=== PATIENT | male | born 1935 | race Caucasian/White ===

== ENCOUNTER 2016-04-27 09:17 | Emergency (ER) | payer MEDICARE, OTHER ==
--- NOTE | 2016-04-27 09:21 | ED Physician Chart ---
Chief Complaint/HPI - Patient Information Date Seen:: 04/27/16 Time Seen:: 09:21 Chief Complaint:: cough History of Present Illness:: 80-year-old male history of COPD and hypertension complains of acute, moderate, nonproductive, constant, worse at night in the morning, cough 1 month. Took NyQuil and [id number] cough syrup but cough has persisted. Allergies:: Allergies Allergy/AdvReac Type Severity Reaction Status Date / Time MDX No Known Allergies - Nka Allergy Verified 04/18/14 11:28 [No Known Allergies - Nka] Historian:: Patient Review:: Nurse's Note Reviewed Review of Systems - Review of Systems Other: Complete system review otherwise unremarkable except as noted in history of present illness. Past Medical History - Past Medical History Past Medical History: HTN, Asthma/COPD Family History: None Social History: Non Smoker (remote history of smoking), No Alcohol, No Drug Use Surgical History: None Psychiatricy History: None Medication: Reviewed Family Medical History - Family Member Mother Ethnicity: Non- Living Status: Hx Family Cancer: Yes Hx Family Coronary Artery Disease: No Hx Family Congestive Heart Failure: No Hx Family Hypertension: No Hx Family Stroke: No Hx Family Diabetes: No Hx Family Seizures: No Hx Family Dementia: No Hx Family AIDS: No Hx Family HIV: No Hx Family COPD: No Hx Family Hepatitis: No Hx Family Psychiatric Problems: No Hx Family Tuberculosis: No Physical Exam - Physical Examination Other:: INITIAL VITAL SIGNS: Reviewed by me GENERAL: Alert and interactive. No acute distress HEAD: Head is normocephalic and atraumatic EYES: EOMI. PERRL. No scleral icterus. No conjunctival injection ENT: Moist mucous membranes. NECK: Supple. No masses. Full range of motion RESPIRATORY: No tachypnea. Cough on deep inspiration with prolonged expiratory phase bilaterally. No wheezing, rales, or rhonchi CV: Regular rate and rhythm. No murmurs, rubs, or gallops ABDOMEN: Soft, non-distended, non-tender. No guarding. No rebound. No masses. EXTREMITIES: No deformity. No cyanosis. No edema. SKIN: Warm and dry. No obvious rashes. NEUROLOGIC: Alert and oriented. Face is symmetric. Speech is normal. Moves all extremities equally. Motor and sensory distally intact. ED Septic Shock - . Is Septic Shock (SBP<90, OR Lactate>4 mmol\L) present?: No Reassessment (Disposition) - Reassessment Reassessment:: 80-year-old gentleman with underlying COPD and cough. Has acute bronchitis versus COPD exacerbation. Slightly Hypoxic on arrival however has home oxygen. After breathing treatment oxygen improved to 91% on room air. Chest x-ray is abnormal however patient does not want CT scan. Discussed all findings with the patient. He will refer to his outpatient physician for referral to CT. Given age we will prescribe antibiotics. Gave Decadron here in the ER. Prescription for Phenergan With Codeine antitussive and azithromycin. Follow- up PCP 1-2 days. Return to ER precautions given. Reassessment Condition:: Improved - Diagnosis Diagnosis:: COPD exacerbation Hypertension - Aftercare/Follow up Instructions Aftercare/Follow-Up Instructions:: Counseled pt regarding lab results/diagnosis & need follow up, Refer to Discharge Instructions Medication Prescribed:: Azithromycin Prednisone Phenergan with codeine antitussive - Patient Disposition Discharge/Transfer:: Home Condition at Disposition:: Improved ED Discharge Plan - Patient Disposition Admit/Discharge/Transfer: PT DISCHARGED HOME Condition at Disposition: Improved Prescriptions: Azithromycin [Zithromax Tri-Calvin] 250 mg PO DAILY #0 tablet Prednisone [Deltasone] 20 mg PO DAILY #0 tablet Promethazine/Phenyleph/Codeine [Promethazine Vc-Codeine Syrup] 5 ml PO Q8H PRN # 0 syrup PRN Reason: Cough Instructions: Chronic Obstructive Pulmonary Disease Exacerbation Accepting Physician: [place] [Other] - 1-3 Days
[2016-04-27] MEDS ORDERED: Dexamethasone Sodium Phos 4 mg/mL Vial IM STA (09:48)
[2016-04-27] MEDS ORDERED: Albuterol/Ipratropium Neb 3 ML AERS HHN ONE ×2 (09:48→09:53)
[2016-04-27] MEDS ORDERED: Dexamethasone Sodium Phos 10 mg/mL PF Vial ONE (09:50)
--- NOTE | 2016-04-27 11:15 | Diagnostic Imaging Report ---
Portable chest x-ray HISTORY: Cough The lungs are hyperexpanded consistent with changes of COPD. There are bilateral lower lobe interstitial changes that are most likely chronic. Calcific density noted over the right mid chest and left upper chest regions. The findings are probably related to the pleura and associated with old inflammatory disease. A CT scan would confirm. The heart size is normal. Atherosclerotic calcification seen in the aorta. IMPRESSION: 1. Findings consistent with COPD 2. Bilateral lower lobe interstitial changes probably chronic 3. Calcifications over the right mid chest and left upper chest probably related to the pleura and associated with old inflammatory disease. A CT scan would confirm. 4. Atherosclerotic vascular changes
== END 2016-04-27 10:22 | disposition home or self-care (01) ==
LOC: ER 09:17
DX: J44.1 Chronic obstructive pulmonary disease with (acute) exacerbation (principal); J45.909 Unspecified asthma, uncomplicated; I10 Essential (primary) hypertension
CPT/HCPCS: 71010-TC; 94640; Z7502

== ENCOUNTER 2016-04-29 08:27 | Inpatient (IN) | payer MEDICARE, OTHER ==
[2016-04-29] MEDS ORDERED: Albuterol/Ipratropium Neb 3 ML AERS HHN ONE ×4 (08:39→08:58)
--- NOTE | 2016-04-29 08:48 | ED Physician Chart ---
Chief Complaint/HPI - Patient Information Date Seen:: 04/29/16 Time Seen:: 08:45 Chief Complaint:: sob History of Present Illness:: pt here for feeling sob all am...worse now. has hx of copd. x 7 yrs. stopped smoking 7 yrs ago. 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 was here few days ago w similar complaint. has a rx for steroids says he took it today. has inhalers at home. no chest pain. no leg edema. he has had a cough x 1 mo mostly non prod or occasional small ammt clear sputum. no known fever. much congestion in lungs. Allergies:: Allergies Allergy/AdvReac Type Severity Reaction Status Date / Time No Known Allergies Allergy Verified 04/27/16 09:50 Vitals:: Vital Signs - 8 hr 04/29/16 08:43 HR 91 RR 24 O2 Sat % 78 Historian:: Patient Review of Systems - Review of Systems General/Constitutional: No fever, No chills, No weight loss, No weakness, No diaphoresis, No edema, No loss of appetite Skin: No skin lesions, No rash, No bruising Head: No headache, No light-headedness Eyes: No loss of vision, No pain, No diplopia ENT: No earache, No nasal drainage, No sore throat, No tinnitus Neck: No neck pain, No swelling, No thyromegaly, No stiffness, No mass noted Cardio Vascular: No chest pain, No palpitations, No PND, No orthopnea, No edema Pulmonary: SOB, No cough, No sputum, No wheezing GI: No nausea, No vomiting, No diarrhea, No pain, No melena, No hematochezia, No constipation, No hematemesis G/U: No dysuria, No frequency, No hematuria Musculoskeletal: No bone or joint pain, No back pain, No muscle pain Endocrine: No polyuria, No polydipsia Psychiatric: No prior psych history, No depression, No anxiety, No suicidal ideation Hematopoietic: No bruising, No lymphadenopathy Allergic/Immuno: No urticaria, No angioedema Neurological: No syncope, No focal symptoms, No weakness, No paresthesia, No headache, No seizure, No dizziness, No confusion, No vertigo Past Medical History - Past Medical History Past Medical History: HTN, Asthma/COPD Social History: Non Smoker (past tob) Medication: Reviewed Family Medical History - Family Member Mother History Unknown: Yes Ethnicity: Non- Living Status: Hx Family Cancer: Yes Hx Family Coronary Artery Disease: No Hx Family Congestive Heart Failure: No Hx Family Hypertension: No Hx Family Stroke: No Hx Family Diabetes: No Hx Family Seizures: No Hx Family Dementia: No Hx Family AIDS: No Hx Family HIV: No Hx Family COPD: No Hx Family Hepatitis: No Hx Family Psychiatric Problems: No Hx Family Tuberculosis: No Physical Exam - Physical Examination General/Constitutional: Awake, Well-developed, well-nourished, Alert, No distress, GCS 15, Non-toxic appearing, Ambulatory Other Gen/Cons comments:: very thin male who is alert and speaks in full sentences. apears to have chronic emphysema. somewhat mild sob at present w mild wheezing heard ...overall air mvt is good. no leg tndrness nor edema. no c/o cp. Head: Atraumatic Eyes: Lids, conjuctiva normal, PERRL, EOMI Skin: Nl inspection, No rash, No skin lesions, No ecchymosis, Well hydrated, No lymphadenopathy ENMT: External ears, nose nl, Nasal exam nl, Lips, teeth, gums nl Neck: Nontender, Full ROM w/o pain, No JVD, No nuchal rigidity, No bruit, No mass, No stridor Respiratory: Nl effort/Exclusion, Clear to Auscultation, No Wheeze/Rhonchi/Rales Other Respiratory comments:: bronchial cough/ronchi pos. some wheeze. Cardio Vascular: RRR, No murmur, gallop, rubs, NL S1 S2 GI: No tenderness/rebounding/guarding, No organomegaly, No hernia, Normal BS's, Nondistended, No mass/bruits, No McBurney tenderness : No CVA tenderness Extremities: No tenderness or effusion, Full ROM, normal strength in all extremities, No edema, Normal digits & nails Neuro/Psych: Alert/oriented, DTR's symmetric, Normal sensory exam, Normal motor strength, Judgement/insight normal, Mood normal, Normal gait, No focal deficits Misc: normal gait, Normal back, No paraspinal tenderness Labs/Radiology/EKG Results - Lab Results Results: Laboratory Tests 04/29/16 04/29/16 04/29/16 08:40 08:40 08:40 WBC 11.2 H D RBC 4.24 Hgb 13.9 Hct 41.1 MCV 97.1 MCH 32.8 H MCHC Differential 33.7 RDW 13.5 Plt Count 211 MPV 8.4 Band Neutrophils % 3 Neutrophils (Manual) 73 Lymphocytes 7 L Monocytes 17 H Platelet Estimate ADEQUATE Platelet Morphology NORMAL RBC Morph Micro Appear NORMAL Specimen Source Sample Site pH pCO2 pO2 HCO3 Base Excess O2 Saturation Inspired O2 Critical Value Sodium 133 L Potassium 3.8 Chloride 100 Carbon Dioxide 32.3 H Anion Gap 4.5 L BUN 20 Creatinine 0.9 Est GFR ( Amer) TNP Est GFR (Non-Af Amer) TNP BUN/Creatinine Ratio 22.2 Glucose 120 H Whole Bld Lactic Acid 1.82 Calcium 9.9 Total Bilirubin 0.6 AST 28 ALT 14 Alkaline Phosphatase 57 Troponin I Total Protein 8.1 Albumin 4.4 Globulin 3.7 Albumin/Globulin Ratio 1.2 04/29/16 04/29/16 08:40 08:48 WBC RBC Hgb Hct MCV MCH MCHC Differential RDW Plt Count MPV Band Neutrophils % Neutrophils (Manual) Lymphocytes Monocytes Platelet Estimate Platelet Morphology RBC Morph Micro Appear Specimen Source Arterial Sample Site RB pH 7.35 pCO2 60.0 H* pO2 56.0 L HCO3 33.1 H Base Excess 5.8 H O2 Saturation 87.0 L Inspired O2 28 Critical Value PW Sodium Potassium Chloride Carbon Dioxide Anion Gap BUN Creatinine Est GFR ( Amer) Est GFR (Non-Af Amer) BUN/Creatinine Ratio Glucose Whole Bld Lactic Acid Calcium Total Bilirubin AST ALT Alkaline Phosphatase Troponin I 0.08 H* Total Protein Albumin Globulin Albumin/Globulin Ratio - Radiology Results Results: cxr nad. subtle round density 3cm in rt mid lung could be a subtle inf or fungal ?? - EKG Interpretations EKG Time:: 08:45 Rhythm: nsr [place]: 51 Rate: 81 Comments:: nsr , wnl, 1 x pvc ED Septic Shock - . Is Septic Shock (SBP<90, OR Lactate>4 mmol\L) present?: No - <6hrs of presentation: Vital Signs: Vital Signs - 8 hr 04/29/16 08:43 HR 91 RR 24 O2 Sat % 78 Reassessment (Disposition) - Reassessment Reassessment:: pt is breathing easier. sao2 has improved to low 90s. pt not gasping and sepaks easily. he is ok w admission. explained about elev troponin. d/w telecommunication operator Dr Perry will see in ed (10;04a) Reassessment Condition:: Improved - Diagnosis Diagnosis:: 1 emphysema/copd exacerbation 2 pneumonia 3 elevated troponin r/o CA - Patient Disposition Admitted to:: Telemetry Condition at Disposition:: Improved
[2016-04-29 09:07] LABS: BE(B) 5.8 mEq/L (-3.0-3.0); HCO3 33.1 mEq/L (20.0-26.0); pH 7.35 (7.35-7.45)
[2016-04-29 09:08] LABS: ABG SOURCE Arterial; CRITICAL VALUES REPORTED BY PW; FIO2 28
[2016-04-29 09:13] LABS: HEMATOCRIT 41.1 % (39.0-49.0); HEMOGLOBIN 13.9 gm/dL (12.6-17.4); MEAN CELL VOLUME 97.1 fl (80-99); MEAN CORPUSCULAR HEMOGLOBIN 32.8 pg (27.0-31.0); MEAN CORPUSCULAR HGB CONC 33.7 pg (28.0-36.0); MEAN PLATELET VOLUME 8.4 fl; PLATELET COUNT 211 Th/cmm (150-400); RED BLOOD COUNT 4.24 Mil/cmm (3.80-5.80); RED CELL DISTRIBUTION WIDTH 13.5 % (11.5-20.0)
[2016-04-29 09:14] LABS: ALB/GLOB RATIO 1.2 (1.0-1.8); ALKALINE PHOSPHATASE 57 U/L (34-104); ANION GAP 4.5 (7.0-16.0); BILIRUBIN,TOTAL 0.6 mg/dL (0.3-1.0); BUN - UREA NITROGEN 20 mg/dL (7-25); BUN/CREATININE RATIO 22.2; CALCIUM SERUM 9.9 mg/dL (8.6-10.3); CARBON DIOXIDE 32.3 mEq/L (21.0-31.0); CHLORIDE 100 mEq/L (98-107); CREATININE - SERUM 0.9 mg/dL (0.7-1.3); GLUCOSE 120 mg/dL (70-105); POTASSIUM SERUM 3.8 mEq/L (3.5-5.1); SGOT 28 U/L (13-39); SGPT/ALT 14 U/L (7-52); SODIUM SERUM 133 mEq/L (136-145); WHITE BLOOD COUNT 11.2 Th/cmm (4.8-10.8)
--- NOTE | 2016-04-29 09:25 | Diagnostic Imaging Report ---
CHEST X-RAY: AP view INDICATION: Shortness of breath, cough for one month COMPARISON: Chest x-ray 04/27/2016 FINDINGS: Extensive chronic lung changes are seen with areas of scarring including the left upper lung zone. Diffuse pleural calcifications are seen. Right perihilar parenchymal disease is noted. Bibasal pleural thickening is noted. Heart size is normal. Atherosclerosis is noted. Degenerative changes of the spine are noted. IMPRESSION: Extensive chronic lung changes and COPD. Bilateral pleural calcifications are seen which may be due to prior infectious or inflammatory process or asbestos exposure. Right perihilar parenchymal disease which may represent chronic parenchymal changes or possible pneumonia. Underlying nodular other mass lesion cannot be completely excluded. Correlation with old exams is recommended. A short-term follow-up CT of the chest would provide additional detail and assessment. Atherosclerotic vascular disease.
[2016-04-29 09:32] LABS: BAND NEUTROPHILE 3 % (0-10); NEUTROPHILS 73 % (40-80); PLATELET ESTIMATE ADEQUATE (NORMAL); PLATELET MORPHOLOGY NORMAL (NORMAL); TOTAL CELLS COUNTED 100
[2016-04-29] MEDS ORDERED: Levofloxacin 500mg/100mL 500 MG/100 ML BAG IV ONE ×2 (10:05→10:08)
[2016-04-29] MEDS ORDERED: Magnesium Hydroxide (MOM) 30 mL UDC PO PRN (10:51)
[2016-04-29] MEDS ORDERED: Hydrocodone/APAP 10 mg/325 mg Tab PO PRN (10:51)
[2016-04-29] MEDS ORDERED: Hydrocodone/APAP 5mg/325mg Tab PO PRN (10:51)
[2016-04-29] MEDS ORDERED: Maalox 30 mL Cup PO PRN (10:51)
--- NOTE | 2016-04-29 11:27 | Admit Criteria Form ---
Admit Criteria Forms - Admit Criteria Diagnosis: COPD Clinical Indications for Admission to Inpatient Care (Place 'X' for any and all applicable criteria): Admission is indicated for ANY ONE of the following (1)(2)(3): [X]I. Acute exacerbation by high-risk comorbidity (e.g., pneumonia, dysrhythmia, heart failure, pleural effusion, pneumothorax) or severe underlying COPD (e.g., steroid dependent) [ ]II. Inpatient admission required rather than observation care (see Chronic Obstructive Pulmonary Disease: Observation Care) because of ANY ONE of the following: [ ]a) New or pre-existing signs or symptoms of COPD (eg, dyspnea or Tachypnea at rest or with minimal activity) that persist despite outpatient and observation care treatment [ ]b) New-onset hypoxemia (room air SaO2 less than 90%, PO2 less than 60 mm Hg (8.0 kPa)) that persists despite outpatient and observation care treatment [ ]c) Worsening of pre-existing hypoxemia (eg, new or increased requirement for supplemental oxygen to maintain oxygenation at baseline level) that persists despite outpatient and observation care treatment, with oxygen treatment needs performable only in acute inpatient setting [ ]d) Hypercarbia (PCO2 greater than 40 mm Hg (5.3 kPa))-induced respiratory acidosis (pH less than 7.35) that persists despite outpatient and observation care treatment [ ]e) Supplemental oxygen or respiratory treatments for over 24 hours that are performable only in acute inpatient setting [ ]f) Chest tube placement with active evacuation (e.g., suction, drainage) (5) [ ]g) Other condition, treatment or monitoring requiring inpatient admission [ ]III. Planned invasive surgical or diagnostic procedures requiring acute- care hospitalization [ ]IV. Acute respiratory failure (e.g., uncompensated hypercarbia, severe hypoxemia) [ ]V. Severe comorbid condition (e.g., severe steroid myopathy, acute vertebral fracture) that has acutely worsened pulmonary function [ ]. Confusion state, lethargy, obtundation, stupor or coma Extended stay beyond goal length of stay may be needed for (31)(32): [ ]a ) Respiratory Failure. [ ]b) Severe or persisting hypoxemia or hypercarbia [ ]c) Severe or persistent dyspnea [ ]d) Comorbidities (e.g. chronic heart failure, atrial fibrillation with rapid response, pneumonia) [ ]e) Malnutrition The original [facility] content created by [email or web address] has been revised. The portions of the content which have been revised are identified through the use of italic text or in bold, and [facility] has neither reviewed nor approved the modified material. All other unmodified content is copyright [facility]. Please see references footnoted in the original [facility] edition 2016 Admit Criteria Met?: Yes
[2016-04-29] MEDS: D5-0.9%NS 1,000 ML IV SCH (11:31)
[2016-04-29] MEDS ORDERED: Pneumococcal Vaccine 0.5 mL Vial IM ONE (12:10)
--- NOTE | 2016-04-29 14:13 | History & Physical ---
CHIEF COMPLAINT: Shortness of breath. HISTORY OF PRESENT ILLNESS: The patient is a 80-year-old white male who presented to the ER complaining of shortness of breath. The patient says working in rell environment this morning. The patient is here a few days ago with some complaints. The patient has history of COPD for 7 years. The patient denies any chest pain. The patient with some productive cough. No fever, no chills. ALLERGIES: No known allergies. REVIEW OF SYSTEMS: See history of present illness. MEDICATIONS: See medication reconciliation form. PAST MEDICAL HISTORY: Hypertension, COPD. PAST SURGICAL HISTORY: Negative. SOCIAL HISTORY: Denies IV drug use. Denies alcohol abuse. History of tobacco use in the past. PHYSICAL EXAMINATION: GENERAL: The patient is awake, alert, nontoxic in appearance. VITAL SIGNS ON ADMISSION: Temperature per labs, pulse of 90, blood pressure 124 /97, respiration rate 20, O2 sat per labs on room air. HEENT: Normocephalic, atraumatic. Extraocular movements intact. Pupils are reactive to light. Oropharynx is clear. NECK: Supple. No thyromegaly. No lymphadenopathy. CARDIOVASCULAR: S1 and S2. No rubs, gallops. RESPIRATORY: The patient has some wheezing. The patient has some rhonchi. GASTROINTESTINAL: Soft, nontender, bowel sounds present. GENITOURINARY: No CVA tenderness. No suprapubic tenderness. BACK: No midline tenderness. EXTREMITIES: Equal pulses bilaterally. No significant edema. SKIN: Negative. PSYCHIATRIC: Negative. NEUROLOGIC: Cranial nerves 2-12 intact. Extraocular movements are intact. Sensation intact. Neurovascular intact. Bilateral muscle grossly normal. LABORATORY DATA: Labs on admission as follows, hematology, WBC 11.2, hemoglobin 13.9 and 40.1, platelet count of 211, 7% lymphocytes, 17% monocytes. ABG, pH of 7.3, pCO2 60, pO2 of 56, bicarbonate 33, O2 87% on room air. Chemistry: Sodium 133, potassium 3.8, chloride 100, bicarbonate 32, anion gap of 4.5, BUN 20, creatinine 0.9, GFR unavailable, glucose is 120, lactic acid 1.82, calcium per labs. Total bili 0.6, AST 20, ALT 14, alkaline phosphatase 57, troponin 0.08. Total protein 8.1, albumin 4.4, globulin 3.7. ASSESSMENT AND PLAN: 1. Respiratory failure (acute). 2. Chronic obstructive pulmonary disease exacerbation. 3. Leukocytosis. 4. Hyponatremia. 5. Hyperglycemia. 6. Elevated troponin level. 7. Hypertension. PLAN: The patient admitted to telemetry unit, seen by Dr. Silver Marie. We will obtain further labs and consultation as needed. JOB# [id number] [facility]
[2016-04-29] MEDS: Albuterol Nebulizer 2.5mg/3mL HHN PRN (15:27)
[2016-04-29] MEDS: Ipratropium Neb 0.5 mg/2.5 mL UD HHN PRN (15:27)
[2016-04-30] MEDS: D5-0.9%NS 1,000 ML IV SCH ×2 (04:07→18:49)
[2016-04-30] MEDS: methylPREDNISolone SS 40 mg Vial IVP SCH ×3 (05:37→22:20)
[2016-04-30] MEDS: Promethazine DM 6.25/15mg-5mL 5 ML SYR PO PRN ×2 (05:56→17:13)
--- NOTE | 2016-04-30 06:09 | Consultation ---
HISTORY OF PRESENT ILLNESS: This patient is seen on courtesy of Dr. Silver Marie, as the patient is coming with short of breath and with feeling of tired. He also has the abnormal labs with the consistence of the troponin slightly elevated to 0.08. 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 He thinks that it is the area where there is a lot of mold and because of the cold also he gets aggravated with shortness of breath. He denies of any chest pain, palpitation or feeling dizzy and lightheaded. No nausea, vomiting, no abdominal pain, no diarrhea and no fever, chills or rigors. He has had chronic cough because of his COPD. PAST MEDICAL HISTORY: Has history of COPD secondary to smoking. Chronic smoking and also has possible dyslipidemia. No hypertension. No other medical problems. PERSONAL HISTORY: He started smoking at the age of 14 and quit about 7 years ago. He used to smoke 1-1/2 pack per day and or more when he was in the [employer] and also indulged in drinking, but no more for the last 7 years. No drug abuse. FAMILY HISTORY: Nothing contributory from cardiac point of view. ALLERGIES: No known drug allergies. REVIEW OF SYSTEMS: Nothing contributory from cardiac point of view except as mentioned above. PHYSICAL EXAMINATION: GENERAL: The patient is a 80-year-old male who is alert and oriented and short of breath. VITAL SIGNS: His vital signs are stable as temperature is 98.8, pulse is 91, respiration is 24, blood pressure 149/76 and O2 sat is 78% on the room air. HEENT: Normal. NECK: Supple. JVP is flat. No lymphadenopathy. CHEST: Equal bilaterally. No chest wall tenderness. LUNGS: Decreased breath sounds bilaterally and decreased air entry bilaterally. No rhonchi. CARDIOVASCULAR SYSTEM: PMI not palpable. Heart sounds, the S1 is slightly loud, S2 is loud. P2 is more than the A2. There is systolic ejection murmur in the pulmonary area, which is 2-3/6 grade and also in the aortic area is 2-3/6 grade and also radiating towards the apex. No rub. No S3 is appreciated. Soft S4 heard at the apex. ABDOMEN: Normal. CENTRAL NERVOUS SYSTEM: Grossly normal. EXTREMITIES: No edema, no cyanosis and no clubbing. Pedal pulsations are equal bilaterally. LABORATORY DATA: Lab work from the cardiac point of view is as mentioned above. IMPRESSION: Elevated troponin, most likely secondary to mild hypoxia or underlying cardiomyopathy, to be evaluated. Has dyspnea and has hypercapnia secondary to the severe COPD secondary to chronic smoking in the past. Has a history of dyslipidemia, hypertension, which is controlled and hypertensive heart disease. PLAN: We will get further troponin, serial troponin, EKG, also do the echocardiogram and continue with monitoring the patient. We will further initiate the workup if the patient turned out to be having the pulmonary hypertension as suggested by physical examination, then further management will be initiated. From cardiac point of view, I will continue with present therapy at the moment, control the heart rate and control the blood pressure and stabilize if any, and medical management for underlying myocardial ischemia or underlying cardiomyopathy. Further workup will be initiated as needed. Thank you very much, Sushant, for your kind referral and I will follow along with you during his acute problem. JOB# [id number] [facility]
[2016-04-30 07:05] LABS: HEMOGLOBIN 12.2 gm/dL (12.6-17.4); MEAN CELL VOLUME 97.2 fl (80-99); MEAN CORPUSCULAR HEMOGLOBIN 33.5 pg (27.0-31.0); MEAN CORPUSCULAR HGB CONC 34.5 pg (28.0-36.0); MEAN PLATELET VOLUME 8.3 fl; PLATELET COUNT 197 Th/cmm (150-400); RED BLOOD COUNT 3.63 Mil/cmm (3.80-5.80); RED CELL DISTRIBUTION WIDTH 13.4 % (11.5-20.0)
[2016-04-30 07:20] LABS: ANION GAP 5.1 (7.0-16.0); BUN - UREA NITROGEN 17 mg/dL (7-25); BUN/CREATININE RATIO 18.9; CALCIUM SERUM 8.7 mg/dL (8.6-10.3); CARBON DIOXIDE 32.7 mEq/L (21.0-31.0); CHLORIDE 101 mEq/L (98-107); CHOLESTEROL 140 mg/dL (<200); CREATININE - SERUM 0.9 mg/dL (0.7-1.3); GLUCOSE 108 mg/dL (70-105); POTASSIUM SERUM 3.8 mEq/L (3.5-5.1); SODIUM SERUM 135 mEq/L (136-145); TRIGLYCERIDES 46 mg/dL (<150)
[2016-04-30 07:32] LABS: HEMATOCRIT 35.3 % (39.0-49.0); WHITE BLOOD COUNT 12.5 Th/cmm (4.8-10.8)
[2016-04-30] MEDS: Levofloxacin 500mg/100mL 500 MG/100 ML BAG IV SCH (08:25)
[2016-04-30 08:26] LABS: BAND NEUTROPHILE 5 % (0-10); NEUTROPHILS 80 % (40-80); PLATELET ESTIMATE ADEQUATE (NORMAL); PLATELET MORPHOLOGY NORMAL (NORMAL); TOTAL CELLS COUNTED 100
[2016-04-30] MEDS: Pantoprazole 40 mg/Packet PO SCH (14:52)
[2016-04-30] MEDS: methylPREDNISolone SS 40 mg Vial IV SCH ×2 (14:52→22:21)
[2016-04-30] MEDS: Albuterol/Ipratropium Neb 3 ML AERS HHN SCH ×2 (15:40→18:53)
--- NOTE | 2016-04-30 16:11 | Diagnostic Imaging Report ---
CT scan of the chest without intravenous contrast HISTORY: Shortness of breath, COPD Total DLP equals 161 CTDI equals 3.9 Axial sections were obtained from a level above the clavicles down to level below the diaphragm. The overall heart size is normal. There is mild aneurysmal dilatation of the ascending aorta (maximum diameter 4.0 cm). Mild atherosclerotic coronary artery calcification noted. Normal-sized lymph nodes are seen within the mediastinum. The exam of the lungs demonstrates severe chronic interstitial lung changes particularly within the lower lobes along with cystic and bullous changes. Pleural calcification noted in the posterior aspect of the right lower hemithorax and along the right hemidiaphragm consistent with chronic change. No definite acute abnormalities are seen. Degenerative changes noted within the spine. IMPRESSION: 1. Severe diffuse bilateral interstitial lung changes most pronounced in the lower lobes with cystic and bullous changes. Additional pleural and diaphragmatic calcification noted consistent with chronic change. 2. Mild aneurysmal dilatation of the ascending aorta along with atherosclerotic vascular changes.
[2016-04-30] MEDS: Budesonide 0.5 Mg/2 mL Ud HHN SCH (18:54)
--- NOTE | 2016-04-30 23:29 | Consultation ---
PRIMARY PHYSICIAN: Dr. Sushant Marie. REASON FOR CONSULTATION: Pneumonia. This is a 80-year-old male who was brought to the Emergency Room with complaint of shortness of breath in the morning on the day of admission. HISTORY OF PRESENT ILLNESS: The patient has shortness of breath because of COPD. 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 The patient also has off and on cough for last one month with clear sputum. The patient was evaluated and admitted to the hospital. The patient's oxygen saturation was 78% in ER. ____ on supplemental oxygen. Infectious consultation was called for further treatment. PAST MEDICAL HISTORY: COPD, asthma, hypertension, and ex-smoker. FAMILY HISTORY: Negative. REVIEW OF SYSTEMS: A 14-point review of systems negative except above. PHYSICAL EXAMINATION: GENERAL: Thin-built elderly male. VITAL SIGNS: Temperature is 98.2, pulse 74, respiration 18, and blood pressure 117/60. HEENT: Mild pallor. No icterus. No plaque. NECK: Supple. LUNGS: Breath sounds bilateral vesicular, decreased all over. HEART: S1 and S2. ABDOMEN: Soft. Bowel sounds present. No thyromegaly. No cervical lymph nodes. LAB DATA: Cultures are pending. White count is 11,000. Hemoglobin is 13 g. Platelets 211,000. Chest x-ray shows chronic lung changes and COPD, perihilar infiltrates. DIAGNOSES: 1. Respiratory insufficiency. 2. Pneumonia. 3. Chronic obstructive pulmonary disease. 4. Hypertension. 5. Asthma. PLAN: The patient is started on Zosyn and Levaquin. Supplemental oxygen. Aggressive bronchodilator treatment. Rest of the care as ordered in CPOE. Thank you Dr. Marie for this consultation. JOB# [id number]
[2016-05-01] MEDS: Promethazine DM 6.25/15mg-5mL 5 ML SYR PO PRN ×3 (00:02→21:17)
[2016-05-01] MEDS: methylPREDNISolone SS 40 mg Vial IV SCH ×3 (05:18→21:08)
[2016-05-01] MEDS: D5-0.9%NS 1,000 ML IV SCH (06:33)
--- NOTE | 2016-05-01 06:48 | Consultation ---
REASON FOR CONSULTATION: Help patient with short of breath. CONSULT NOTE: This is a 80-year-old gentleman who has history of more than [id number] smoker, still smoked until about 7 years ago and unfortunately, he is in and out of the hospital and with shortness of breath. He lives in [facility], but he has lived his life here, hence he ____ to come in the local hospital. This time, his symptoms precipitated with increasingly shortness of breath; a few days before that he was in Emergency Room. Subsequently, his symptoms started getting more worse. The patient came back again and was admitted for further care and necessary treatment. He has a chronic coughing, chronic wheezing, has been taking ____ and Proventil p.r.n. and the patient is also ____ high blood pressure. No hemoptysis. No pleuritic chest pain. Denied of any fever. Denied of any swelling of the legs. 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 Denies of any significant loss of weight, etc. PAST MEDICAL HISTORY: 1. COPD, possibly pulmonary fibrosis. 2. Essential hypertension. ALLERGIC HISTORY: Nil. SMOKING HISTORY: More than [id number] smoker; otherwise, unremarkable. FAMILY HISTORY: Noncontributory. No history of alcohol or drug abuse. PHYSICAL FINDING: GENERAL: This is an elderly looking, thin, cachectic gentleman, awake, alert, oriented, not in any acute distress, periodic coughing at my exam. VITAL SIGNS: The patient's temperature is 98.4, blood pressure 118/56, saturation is 93 on 2 liters. HEENT: Examination of the head is essentially unremarkable. Pupils appear to be equal and reactive to light. Oral cavity shows poor dental hygiene with small oropharyngeal opening. NECK: No nodes in the neck could be palpated. Good bilateral carotid upstroke. CHEST: Shows scattered wheezing with marked diminished air entry. HEART: Regular. ABDOMEN: Soft, nontender. EXTREMITIES: Shows poor hygienic condition; otherwise, unremarkable. LABORATORY DATA: The patient's chest x-ray "dirty lung" with some scarring with significant hyperinflated lung. The patient's CBC, white count of 12.5. Blood gases shows compensated respiratory acidemia on 2 L of oxygen. The patient's electrolytes are okay. The patient's microbiology, so far, no growth from the blood, sputum is pending. ASSESSMENT: 1. The patient is in [id number] respiratory failure secondary to the severe emphysema superimposed with severe obstructive sleep apnea syndrome superimposed on pulmonary fibrosis associated with hypoxemia. 2. History of previous tobacco use, history of chronic obstructive pulmonary disease, and other things. PLANS AND SUGGESTION: We will get a sputum study, control blood pressure. We will continue to give IV steroid, we will increase the dose, we will give inhaled steroid, repeat the sputum, get a CT of the chest and see how it is and go from there. JOB# [id number]
[2016-05-01 07:27] LABS: HEMATOCRIT 35.8 % (39.0-49.0); HEMOGLOBIN 12.1 gm/dL (12.6-17.4); MEAN CELL VOLUME 97.9 fl (80-99); MEAN CORPUSCULAR HEMOGLOBIN 33.1 pg (27.0-31.0); MEAN CORPUSCULAR HGB CONC 33.8 pg (28.0-36.0); MEAN PLATELET VOLUME 8.2 fl; PLATELET COUNT 169 Th/cmm (150-400); RED BLOOD COUNT 3.65 Mil/cmm (3.80-5.80); RED CELL DISTRIBUTION WIDTH 13.4 % (11.5-20.0); WHITE BLOOD COUNT 10.1 Th/cmm (4.8-10.8)
[2016-05-01 07:37] LABS: ALB/GLOB RATIO 1.1 (1.0-1.8); ALKALINE PHOSPHATASE 34 U/L (34-104); BILIRUBIN,TOTAL 0.3 mg/dL (0.3-1.0); BUN - UREA NITROGEN 17 mg/dL (7-25); BUN/CREATININE RATIO 21.3; CALCIUM SERUM 8.8 mg/dL (8.6-10.3); CARBON DIOXIDE 32.2 mEq/L (21.0-31.0); CHLORIDE 103 mEq/L (98-107); CREATININE - SERUM 0.8 mg/dL (0.7-1.3); GLUCOSE 126 mg/dL (70-105); POTASSIUM SERUM 4.2 mEq/L (3.5-5.1); SGOT 13 U/L (13-39); SGPT/ALT 11 U/L (7-52); SODIUM SERUM 138 mEq/L (136-145)
[2016-05-01] MEDS: Albuterol/Ipratropium Neb 3 ML AERS HHN SCH ×4 (07:42→21:20)
[2016-05-01] MEDS: Budesonide 0.5 Mg/2 mL Ud HHN SCH ×2 (07:43→21:20)
[2016-05-01 08:23] LABS: pH 7.36 (7.35-7.45)
[2016-05-01 08:24] LABS: BE(B) 6.2 mEq/L (-3.0-3.0); HCO3 33.3 mEq/L (20.0-26.0)
[2016-05-01 08:25] LABS: ABG SOURCE Arterial
[2016-05-01 08:26] LABS: CRITICAL VALUES REPORTED BY CAS; FIO2 28
[2016-05-01 08:30] LABS: NEUTROPHILS 90 % (40-80); PLATELET ESTIMATE ADEQUATE (NORMAL); PLATELET MORPHOLOGY NORMAL (NORMAL); TOTAL CELLS COUNTED 100
[2016-05-01] MEDS: Levofloxacin 500mg/100mL 500 MG/100 ML BAG IV SCH (09:16)
[2016-05-01] MEDS: Pantoprazole 40 mg/Packet PO SCH (09:17)
--- NOTE | 2016-05-01 12:26 | Infectious Disease Prog Note ---
Infectious Disease Subjective - Review of Systems Service Date: 05/01/16 Subjective: cc pneumonia/copd hpio- pt schedule for discharge d/w staff po levaquin x 7 days ros no frveer o/e vss chest claera bd soft ext no edema dx pneumonia bronchitis copd Infectious Disease Objective - Results Result Diagrams: 05/01/16 06:30 05/01/16 06:30 Recent Labs: Laboratory Last Values WBC 10.1 Th/cmm (4.8-10.8) 05/01/16 06:30 RBC 3.65 Mil/cmm (3.80-5.80) L 05/01/16 06:30 Hgb 12.1 gm/dL (12.6-17.4) L 05/01/16 06:30 Hct 35.8 % (39.0-49.0) L 05/01/16 06:30 MCV 97.9 fl (80-99) 05/01/16 06:30 MCH 33.1 pg (27.0-31.0) H 05/01/16 06:30 MCHC Differential 33.8 pg (28.0-36.0) 05/01/16 06:30 RDW 13.4 % (11.5-20.0) 05/01/16 06:30 Plt Count 169 Th/cmm (150-400) 05/01/16 06:30 MPV 8.2 fl 05/01/16 06:30 Band Neutrophils % 5 % (0-10) 04/30/16 05:55 Neutrophils (Manual) 90 % (40-80) H 05/01/16 06:30 Lymphocytes 2 % (20-50) L 05/01/16 06:30 Monocytes 8 % (2-10) 05/01/16 06:30 Platelet Estimate ADEQUATE (NORMAL) 05/01/16 06:30 Platelet Morphology NORMAL (NORMAL) 05/01/16 06:30 RBC Morph Micro Appear NORMAL (NORMAL) 05/01/16 06:30 Specimen Source Arterial 05/01/16 07:50 Sample Site RB 05/01/16 07:50 pH 7.36 (7.35-7.45) 05/01/16 07:50 pCO2 59.0 mmHg (35.0-45.0) H* 05/01/16 07:50 pO2 58.0 mmHg (80.0-100.0) L 05/01/16 07:50 HCO3 33.3 mEq/L (20.0-26.0) H 05/01/16 07:50 Base Excess 6.2 mEq/L (-3.0-3.0) H 05/01/16 07:50 O2 Saturation 89.0 % (92.0-100.0) L 05/01/16 07:50 Chilo Test NA 05/01/16 07:50 Vent Rate NA 05/01/16 07:50 Inspired O2 28 05/01/16 07:50 Tidal Volume NA 05/01/16 07:50 PEEP NA 05/01/16 07:50 Pressure (ins/psv/peep) NA 05/01/16 07:50 Critical Value ANNA 05/01/16 07:50 Sodium 138 mEq/L (136-145) 05/01/16 06:30 Potassium 4.2 mEq/L (3.5-5.1) 05/01/16 06:30 Chloride 103 mEq/L (98-107) 05/01/16 06:30 Carbon Dioxide 32.2 mEq/L (21.0-31.0) H 05/01/16 06:30 Anion Gap 7.0 (7.0-16.0) 05/01/16 06:30 BUN 17 mg/dL (7-25) 05/01/16 06:30 Creatinine 0.8 mg/dL (0.7-1.3) 05/01/16 06:30 Est GFR ( Amer) TNP 05/01/16 06:30 Est GFR (Non-Af Amer) TNP 05/01/16 06:30 BUN/Creatinine Ratio 21.3 05/01/16 06:30 Glucose 126 mg/dL (70-105) H 05/01/16 06:30 POC Glucose 167 MG/DL (70 - 105) H 04/29/16 11:59 Whole Bld Lactic Acid 1.82 mmol/L (0.60-1.99) 04/29/16 08:40 Calcium 8.8 mg/dL (8.6-10.3) 05/01/16 06:30 Total Bilirubin 0.3 mg/dL (0.3-1.0) 05/01/16 06:30 Direct Bilirubin 0.10 mg/dL (0.0-0.2) 05/01/16 06:30 AST 13 U/L (13-39) 05/01/16 06:30 ALT 11 U/L (7-52) 05/01/16 06:30 Alkaline Phosphatase 34 U/L (34-104) 05/01/16 06:30 Ammonia 34 umol/L (16-53) 05/01/16 06:30 Creatine Kinase 45 U/L (30-223) 04/30/16 05:55 Troponin I 0.01 ng/mL (0.01-0.05) 04/30/16 05:55 Total Protein 6.2 gm/dL (6.0-8.3) 05/01/16 06:30 Albumin 3.3 gm/dL (4.2-5.5) L 05/01/16 06:30 Globulin 2.9 gm/dL 05/01/16 06:30 Albumin/Globulin Ratio 1.1 (1.0-1.8) 05/01/16 06:30 Triglycerides 46 mg/dL (<150) 04/30/16 05:55 Cholesterol 140 mg/dL (<200) 04/30/16 05:55 LDL Cholesterol Direct 64 mg/dL (75-193) L 04/30/16 05:55 HDL Cholesterol 61 mg/dL (23-92) 04/30/16 05:55 - Physical Exam Vitals and I&O: Vital Signs Temp 97.4 F 05/01/16 08:00 Pulse 67 05/01/16 09:16 Resp 20 05/01/16 08:00 BP 146/69 05/01/16 09:16 Pulse Ox 96 05/01/16 08:00 Intake & Output 04/30/16 05/01/16 05/01/16 18:59 06:59 18:59 Intake Total 1200 1100 Balance 1200 1100 Intake: Intake, IV Amount 1200 1100 D5-0.9%Ns 1,000 ml @ 100 1000 1000 mls/hr IV .Q10H [facility] Rx#: [id number] Levofloxacin 500mg/100mL 100 500 mg In 100 ml @ 100 mls/hr IV Q24HR [facility]LA Rx#: [id number] Piperacillin Sodium/ 100 100 Tazobact 3.375 gm In Sodium Chloride 0.9% 50 ml @ 100 mls/hr IV Q6HR [facility] Rx#:[id number] Active Medications: Current Medications Acetaminophen (Tylenol) 650 mg PO Q6H PRN PRN Reason: Mild Pain/Headache/T above 101 Stop: 06/28/16 10:50 Acetaminophen/Hydrocodone Bitart ([place] 10 Mg/325 Mg) 1 tab PO Q6H PRN PRN Reason: Pain (Severe) Stop: 06/28/16 10:50 Acetaminophen/Hydrocodone Bitart ([place] 5mg/325mg) 1 tab PO Q6H PRN PRN Reason: Moderate Pain Stop: 06/28/16 10:50 Al Hydrox/Mg Hydrox/Simethicone (Maalox) 30 ml PO Q6H PRN PRN Reason: GI DISTRESS Stop: 06/28/16 10:50 Albuterol Sulfate (Albuterol 2.5mg/3ml Neb Ud) 2.5 mg HHN Q6H PRN PRN Reason: Shortness of Breath Stop: 06/28/16 10:50 Last Admin: 04/29/16 15:27 Dose: 2.5 mg Albuterol/Ipratropium (Duoneb Neb) 3 ml HHN [id number] [facility] Stop: 06/29/16 14:59 Last Admin: 05/01/16 11:28 Dose: 3 ml Amlodipine Besylate (Norvasc) 5 mg PO DAILY [facility] Stop: 06/29/16 08:59 Last Admin: 05/01/16 09:16 Dose: 5 mg Budesonide (Pulmicort) 0.5 mg HHN BIDRT [facility] Stop: 06/29/16 18:59 Last Admin: 05/01/16 07:43 Dose: 0.5 mg Dextrose/Sodium Chloride (D5-0.9%Ns) 1,000 mls @ 100 mls/hr IV .Q10H [facility] Stop: 06/28/16 10:59 Last Admin: 05/01/16 06:33 Dose: 100 mls/hr Levofloxacin (Levaquin Pb) 500 mg in 100 mls @ 100 mls/hr IV Q24HR [facility] Stop: 06/29/16 08:59 Last Admin: 05/01/16 09:16 Dose: 100 mls/hr Piperacillin Sod/Tazobactam (Sod 3.375 gm/ Sodium Chloride) 50 mls @ 100 mls/ hr IV Q6HR [facility] Stop: 06/28/16 17:59 Last Infusion: 05/01/16 05:49 Dose: Infused Ipratropium [place] (Atrovent Neb 0.5mg/2.5ml) 0.5 mg HHN Q6H PRN PRN Reason: Shortness of Breath Stop: 06/28/16 10:50 Last Admin: 04/29/16 15:27 Dose: 0.5 mg Lorazepam (Ativan) 1 mg PO Q6H PRN; Protocol PRN Reason: Anxiety/Agitation Stop: 06/28/16 10:50 Losartan Potassium (Cozaar) 100 mg PO DAILY [facility] Stop: 06/29/16 08:59 Last Admin: 05/01/16 09:16 Dose: 100 mg Magnesium Hydroxide (Milk Of Magnesia) 30 ml PO HS PRN PRN Reason: Constipation Stop: 06/28/16 10:50 Methylprednisolone Sodium Succinate (Solu-Medrol) 20 mg IVP Q12HR [facility] Stop: 06/29/16 05:59 Last Admin: 04/30/16 22:20 Dose: 20 mg Methylprednisolone Sodium Succinate (Solu-Medrol) 40 mg IV Q8HR [facility] Stop: 06/29/16 14:29 Last Admin: 05/01/16 05:18 Dose: 40 mg Miscellaneous (Zosyn Iv Per Pharmacy) 1 ea MC PRN PRN PRN Reason: PROTOCOL Stop: 06/28/16 12:55 Ondansetron HCl (Zofran Odt) 4 mg PO Q6H PRN PRN Reason: Nausea / Vomiting Stop: 06/28/16 10:50 Pantoprazole Sodium (Protonix) 40 mg PO DAILY [facility] Stop: 06/29/16 14:29 Last Admin: 05/01/16 09:17 Dose: 40 mg Promethazine HCl/Dextromethorphan (Phenergan Dm 6.25/15mg-5 Ml) 5 ml PO Q6HR PRN PRN Reason: Cough Stop: 06/28/16 12:27 Last Admin: 05/01/16 06:36 Dose: 5 ml - Procedures Procedures: Procedures Procedure Code Date CATARAC PHACOEMULS/ASPIR 13.41 10/11/03 CATARACT SURG W/IOL 1 STAGE 01978 10/11/03 DRAINAGE OF FINGER ABSCESS 52745 11/23/13 INSERT LENS AT CATAR EXT 13.71 10/11/03 IRRIGATION OF EAR 96.52 04/18/14 OTHER SKIN & SUBQ I D 86.04 11/25/13 Infectious Disease Assmt/Plan - Problem List Patient Problems: All Active Problems ANKLE PAIN (Active 11/24/12) Arthritis (Active) M19.90 COUGH WITH CONGESTION (Acute) Cellulitis (Acute) L03.90 Cerumen impaction (Acute) H61.20 Paronychia (Acute) L03.019 Respiratory tract congestion with cough (Acute) R05 Nutritional Asmnt/Malnutr-PDOC - Dietary Evaluation Malnutrition Findings (Please click <Entered> for more info): Nutritional Asmnt/Malnutrition Start: 04/30/16 15: 18 Text: Status: Complete Freq: Document 04/30/16 15:18 GSUN (Rec: 04/30/16 15:27 GSUN [email or web address]) Nutritional Asmnt/Malnutrition Patient General Information Nutritional Screening High Risk Screening Diagnosis Respiratory failure, COPD exacerbation Pertinent Medical Hx/Surgical Hx COPD 7 years, HTN Subjective Information 80 year old male. Visited pt during meal time. Pt was sitting upright, pleasant and cooperative, finished 100% of meals, meeting nutritional needs. Pt noted with coughs, pt stated cough is chronic and denied inteference with eating. Pt with few missing teeth, denied difficulties chewing/swallowng. Pt stated good appetite, breakfast was " awesome." CBW 143.8lb. Moderate fat/muscle wasting to chest, temporals, extremities . Current Diet Order/ Nutrition Support Cardiac Pertinent Medications D5, MOM, Solu-Medrol, Zofran, Protonix Pertinent Labs Reviewed. Nutritional Hx/Data Height 15.24 cm Height (Calculated Centimeters) 15.2 Current Weight (lbs) 65.227 kg Weight (Calculated Kilograms) 65.2 Weight (Calculated Grams) 25190.6 [place] Body Weight 178lb Weight Status Underweight GI Symptoms Food Allergies No Skin Integrity/Comment: Adam 20. Skin intact. Estimated Nutritional Goals Calories/Kcals/Kg IBW 178lb/81kg (underweight, chronic COPD using IBW) Kcals Calculated 2025-2430kcal (25-30kcal/kg) Protein g/kg: IBW Protein Calculated 81-97g (1-1.2g/kg) Fluid: ml 2025-2430ml (1ml/kcal) Nutritional Problem 1. Problem Problem Underweight related to Etiology unknown etiology aeb Signs/Symptoms: BMI <18.5, moderate fat/muscle depletion Intervention/Recommendation Comments 1. Continue with cardiac diet. Current av PO intake si adequate. 2. Monitor weight. Pt is underweight for age with moderate muscle/fat depletion. Expected Outcomes/Goals Expected Outcomes/Goals 1. Po itnake to meet at least 100% of estimated nutrition needs. 2. Weight trend towards IBW.
--- NOTE | 2016-05-01 12:28 | Cardiology ---
REFERRING PHYSICIAN: Sushant Marie M.D. INDICATION: Short of breath and cardiac risk factors. It is a technically difficult echo. Measurements could not be obtained perfectly because of his habitat and technical problem. However, the aortic root dimension in end diastole is 3.32 and aortic valve systolic separation is 2.23 cm. Mitral valve E to A ratio is 0.63. Left ventricular and other measurements could not be obtained, but ejection fraction looks about 60-65%. M-mode and 2D shows that LV dimension is normal. LV wall motion is normal. There is left ventricular hypertrophy is present. Aortic valve is sclerotic without any hemodynamic dysfunction in end diastole or end systole. There is no suggestive evidence for aortic stenosis. Mitral valve annulus is calcified, but the leaflets are normal in thickness and motion in end diastole and end systole. Tricuspid and pulmonic valves are normal in thickness and motion. No pericardial effusion is present. The Doppler measurements showing tricuspid regurgitation Vmax is 4.07 meter per second. Aortic valve systolic Vmax is 1.17 meter per second and aortic valve pressure gradient is 5.5 mmHg. Aortic valve area is 3.07 cm2. Right ventricular systolic pressure is 76.4 mmHg. LV out flow Vmax is 1.15 meter per second. Carotid Doppler shows that there is mild PI. There is trivial aortic regurgitation. There is moderate to severe tricuspid regurgitation present. CONCLUSION: 1. Technically difficult study. 2. LV dimension and second wall motion are normal. Ejection fraction between 60-65%. 3. Left ventricular hypertrophy present with grade 1 diastolic dysfunction. 4. Sclerotic aortic valve without any aortic stenosis. There is trivial aortic regurgitation present. 5. Severe pulmonary hypertension. 6. Moderate to severe tricuspid regurgitation. 7. Mild pulmonary regurgitation. 8. Mitral valve annulus is calcified without any mitral valve dysfunction. 9. Otherwise normal study for the age. JOB# [id number] TRACY
[2016-05-01] MEDS: methylPREDNISolone SS 40 mg Vial IVP SCH (14:36)
--- NOTE | 2016-05-01 22:54 | Progress Notes ---
PROBLEM LIST: 1. Acute exacerbation of chronic obstructive pulmonary disease with respiratory failure. 2. Pulmonary scarring. SYMPTOMS: Nil. The patient is still coughing, still wheezing though no respiratory distress, etc. PHYSICAL EXAMINATION: VITAL SIGNS: Temperature is 98.0 Fahrenheit, blood pressure 113/69, saturation 95 on 2 liters. NECK: Veins could not be visualized. CHEST: Shows scattered wheezing with marked diminished air entry. HEART: Regular. ABDOMEN: Soft, nontender. EXTREMITIES: Shows no peripheral edema. LABORATORY DATA: White count is 10,000, ABG shows not significantly changed, pCO2 is 59, pO2 is 58 and electrolytes are okay and albumin is 3.0. ASSESSMENT: The patient clinically still quite symptomatic with significant wheezing with bronchorrhea. PLANS AND SUGGESTIONS: We will continue current treatment including inhale steroid. We will repeat followup blood gases, also follow through CT of the chest and see how it is and go from there. JOB# [id number]
--- NOTE | 2016-05-02 03:56 | Progress Notes ---
SUBJECTIVE: The patient is awake and alert. The patient is on oxygen nasal cannula. The patient is on IV antibiotics. The patient is receiving inpatient nebulizer treatment. The patient is on IV steroids. OBJECTIVE: VITAL SIGNS: Seen. CARDIOVASCULAR: S1 and S2. RESPIRATORY: Rales, wheezing. GASTROINTESTINAL: Soft. Positive bowel sounds. LABORATORY DATA: Hematology; WBC is 12.5, hemoglobin is 12.2, hematocrit 35.3, platelet count of 197. Chemistry: Sodium 135, potassium 3.8, chloride per labs, bicarb per labs, anion gap 5.1, BUN 17, creatinine 0.9, glucose 108, calcium 8.7, creatine kinase 45, troponin 0.01, cholesterol 140, LDL 64, and HDL 61. ASSESSMENT: 1. Leukocytosis. 2. Anemia. 3. Hyponatremia. 4. Hyperglycemia. 5. Dyslipidemia. 6. Elevated troponin levels (decreased). 7. Dysphagia (acute). 8. Chronic obstructive pulmonary disease exacerbation. 9. Sepsis. 10. Hypertension. PLAN: Continue current medication and treatment. Obtain labs in a.m. Further recommendations per consultation. JOB# [id number] TRACY
--- NOTE | 2016-05-02 04:05 | Progress Notes ---
SUBJECTIVE: The patient is awake and alert. The patient is oxygen nasal cannula. The patient is on IV antibiotics. The patient is receiving inpatient neb treatment. The patient is on IV steroids. OBJECTIVE: VITAL SIGNS: Temperature 98, pulse 85, blood pressure per nursing, respiratory rate 18, and O2 sat is 94% on oxygen via nasal cannula. CARDIOVASCULAR: S1 and S2. RESPIRATORY: Rales/wheezing. GASTROINTESTINAL: Soft. Nontender. Positive bowel sounds. LABORATORY DATA: Hematology: WBC is 7.1, hemoglobin 12.1, hematocrit 35.8, platelet count of 169, 8% neutrophils, 2% lymphocytes. ABG shows pCO2 of 59, pO2 of 58, bicarb 33. Chemistry: Sodium 138, potassium 4.2, chloride 103, bicarb 32, anion gap 7, BUN 17, creatinine 0.8, glucose 126, calcium damien abs, total bili 0.3, direct bilirubin 0.1, AST 13, ALT 11, alk phos per labs, total protein 6.2, albumin 3.3, and globulin 2.9. ASSESSMENT: 1. Anemia. 2. Hyperglycemia. 4. Sepsis. 5. Respiratory failure (acute). 6. Chronic obstructive pulmonary disease exacerbation. 7. Elevated troponin level (resolved). 8. Hypertension. 9. Bronchitis. PLAN: Continue current medication and treatment. Obtain labs in a.m. Awaiting final cultures results. Continue weaning off oxygen. Continue weaning from IV steroids. Further recommendations per consultations. JOB# [id number] TRACY
[2016-05-02] MEDS: D5-0.9%NS 1,000 ML IV SCH ×2 (05:34→18:40)
[2016-05-02] MEDS: methylPREDNISolone SS 40 mg Vial IV SCH ×3 (05:35→21:25)
[2016-05-02] MEDS: Ipratropium Neb 0.5 mg/2.5 mL UD HHN PRN (05:44)
[2016-05-02] MEDS: Albuterol Nebulizer 2.5mg/3mL HHN PRN (05:44)
[2016-05-02 07:02] LABS: HEMATOCRIT 34.5 % (39.0-49.0); HEMOGLOBIN 11.9 gm/dL (12.6-17.4); MEAN CELL VOLUME 97.7 fl (80-99); MEAN CORPUSCULAR HEMOGLOBIN 33.8 pg (27.0-31.0); MEAN CORPUSCULAR HGB CONC 34.5 pg (28.0-36.0); MEAN PLATELET VOLUME 8.1 fl; PLATELET COUNT 151 Th/cmm (150-400); RED BLOOD COUNT 3.53 Mil/cmm (3.80-5.80); RED CELL DISTRIBUTION WIDTH 13.3 % (11.5-20.0); WHITE BLOOD COUNT 9.3 Th/cmm (4.8-10.8)
[2016-05-02 07:22] LABS: ANION GAP 3.8 (7.0-16.0); BUN - UREA NITROGEN 17 mg/dL (7-25); BUN/CREATININE RATIO 21.3; CALCIUM SERUM 8.9 mg/dL (8.6-10.3); CARBON DIOXIDE 33.3 mEq/L (21.0-31.0); CHLORIDE 107 mEq/L (98-107); CREATININE - SERUM 0.8 mg/dL (0.7-1.3); GLUCOSE 110 mg/dL (70-105); POTASSIUM SERUM 4.1 mEq/L (3.5-5.1); SODIUM SERUM 140 mEq/L (136-145)
[2016-05-02] MEDS: Budesonide 0.5 Mg/2 mL Ud HHN SCH ×2 (07:31→19:48)
[2016-05-02 09:21] LABS: BAND NEUTROPHILE 2 % (0-10); NEUTROPHILS 86 % (40-80); PLATELET ESTIMATE ADEQUATE (NORMAL); PLATELET MORPHOLOGY GIANT PLATELETS SEEN (NORMAL); TOTAL CELLS COUNTED 100
[2016-05-02 09:32] LABS: BE(B) 8.4 mEq/L (-3.0-3.0); HCO3 34.4 mEq/L (20.0-26.0); pH 7.42 (7.35-7.45)
[2016-05-02 09:33] LABS: ABG SOURCE Arterial; CRITICAL VALUES REPORTED BY SH; FIO2 21
[2016-05-02] MEDS: Levofloxacin 500mg/100mL 500 MG/100 ML BAG IV SCH (09:38)
[2016-05-02] MEDS: Pantoprazole 40 mg/Packet PO SCH (09:48)
[2016-05-02] MEDS: Albuterol/Ipratropium Neb 3 ML AERS HHN SCH ×3 (10:36→19:48)
--- NOTE | 2016-05-02 22:18 | Progress Notes ---
SUBJECTIVE: The patient is awake and alert. The patient is on IV antibiotics. The patient is on IV fluids. The patient is receiving inpatient neb treatment. The patient is on IV steroids. OBJECTIVE: VITAL SIGNS: Temperature 98.4, pulse 73, blood pressure ____, respiratory rate 16, and O2 sat 94%. CARDIOVASCULAR: S1 and S2. RESPIRATORY: Rales. GASTROINTESTINAL: Soft. Positive bowel sounds. LABORATORY DATA: Hematology: WBC 9.3, hemoglobin 11.9, hematocrit 34.5, platelet count of ____ 86% neutrophils, 8% lymphocytes. ABG shows pH of 7.4, pCO2 of 53, pO2 of 41, bicarb 34, ____ 78%. Chemistry: Sodium 140, potassium 4.1, chloride 7, bicarb 33, anion gap 3.8, BUN 17, creatinine 0.8. GFR ____. Glucose 110 and calcium 8.9. Microbiology: Blood culture from 04/29/2016 ____ growth. MRSA screening from 04/29/2016 is negative. Radiology: Chest CT from 04/30/2016 shows severe diffuse bilateral interstitial lung changes, ____ lower lobes, ____ changes. ____ pleural and diaphragmatic calcification noted with chronic changes. Mild aneurysmal dilation on the descending order along with ____ changes. ASSESSMENT: 1. Sepsis. 2. Respiratory failure (acute). 3. Chronic obstructive pulmonary disease exacerbation. 4. Hypertension. 5. Pneumonia. PLAN: Continue current medication and treatment. Obtain labs in a.m. Continue weaning from steroids. Continue oxygenation. Waiting final culture results. Further recommendation per consultations. JOB# [id number]
[2016-05-03] MEDS: Promethazine DM 6.25/15mg-5mL 5 ML SYR PO PRN ×2 (03:48→08:54)
[2016-05-03] MEDS: methylPREDNISolone SS 40 mg Vial IV SCH ×2 (05:18→12:58)
[2016-05-03] MEDS: Albuterol/Ipratropium Neb 3 ML AERS HHN SCH ×4 (06:49→19:12)
[2016-05-03] MEDS: Budesonide 0.5 Mg/2 mL Ud HHN SCH ×2 (06:49→19:13)
[2016-05-03 07:02] LABS: HEMATOCRIT 35.1 % (39.0-49.0); MEAN CELL VOLUME 97.5 fl (80-99); MEAN CORPUSCULAR HEMOGLOBIN 33.3 pg (27.0-31.0); MEAN CORPUSCULAR HGB CONC 34.2 pg (28.0-36.0); MEAN PLATELET VOLUME 8.1 fl; PLATELET COUNT 171 Th/cmm (150-400); RED CELL DISTRIBUTION WIDTH 13.1 % (11.5-20.0); WHITE BLOOD COUNT 8.7 Th/cmm (4.8-10.8)
[2016-05-03 07:41] LABS: ANION GAP 3.9 (7.0-16.0); BUN - UREA NITROGEN 20 mg/dL (7-25); CALCIUM SERUM 9.2 mg/dL (8.6-10.3); CARBON DIOXIDE 35.4 mEq/L (21.0-31.0); CHLORIDE 101 mEq/L (98-107); CREATININE - SERUM 0.8 mg/dL (0.7-1.3); GLUCOSE 120 mg/dL (70-105); POTASSIUM SERUM 4.3 mEq/L (3.5-5.1); SODIUM SERUM 136 mEq/L (136-145)
--- NOTE | 2016-05-03 07:41 | Progress Notes ---
PROBLEM LIST: 1. Acute exacerbation of chronic obstructive pulmonary disease. 2. Pulmonary fibrosis with questionable interstitial pneumonitis. 3. Chronic respiratory failure. SYMPTOMS: Nil. The patient is feeling a lot better today, less coughing, less wheezing, and less shortness of breath. PHYSICAL EXAMINATION: VITAL SIGNS: The patient's temperature is 97, ____, respiration rate is 16, ____ saturation is 92% on 2 liters of oxygen. NECK: Veins not visualized. Good bilateral carotid upstroke. CHEST: Finding shows scattered wheezing with diminished air entry. HEART: Regular. ABDOMEN: Soft, nontender. LABORATORY DATA: The patient's white count is 9.3, hemoglobin 11.3. ABG, pCO2 is 53, pO2 is 43 on room air. ASSESSMENT: The patient is clinically much better, probably chronic hypoxemic with hypercarbic, well compensated. PLANS AND SUGGESTIONS: We will continue current regimen. If he remains stable in the next 24-48 hours, may consider tapering his steroid. Hopefully, Wednesday or Wednesday can be discharged, etc., and go from there. JOB# [id number]
[2016-05-03] MEDS: Pantoprazole 40 mg/Packet PO SCH (08:52)
[2016-05-03] MEDS: Levofloxacin 500mg/100mL 500 MG/100 ML BAG IV SCH (08:57)
[2016-05-03 09:32] LABS: BAND NEUTROPHILE 4 % (0-10); NEUTROPHILS 81 % (40-80); PLATELET ESTIMATE ADEQUATE (NORMAL); PLATELET MORPHOLOGY NORMAL (NORMAL); TOTAL CELLS COUNTED 100
[2016-05-03] MEDS: D5-0.9%NS 1,000 ML IV SCH (21:00)
--- NOTE | 2016-05-03 21:52 | Progress Notes ---
PROBLEM LIST: 1. Acute exacerbation of chronic obstructive pulmonary disease. 2. Pulmonary scarring. 3. Possibly pulmonary hypertension with cor pulmonale symptoms. SUBJECTIVE: The patient is feeling a lot better, is able to walk a little bit along the room, but no respiratory distress accordingly and not like when he came in 2 days ago. PHYSICAL EXAMINATION: VITAL SIGNS: Temperature is 98.2, blood pressure 134/65, saturation is 96 on 2 L. NECK: Veins not visualized. CHEST: Shows still wheezing, but significantly improved with the coarse rhonchi. HEART: Regular. ABDOMEN: Soft, nontender. EXTREMITIES: Shows no peripheral edema. LABORATORY DATA: White count is 8.7, hemoglobin 12.0 and the patient's electrolytes are okay. ASSESSMENT: The patient is clinically seemingly better today. PLANS AND SUGGESTIONS: We will continue current treatment, we will follow through repeat chest x-ray, blood gases tomorrow and also consideration of oral steroid and see how he does and start physical therapy, etc and go from there. JOB# [id number]
--- NOTE | 2016-05-04 01:22 | Progress Notes ---
SUBJECTIVE: The patient is awake, alert. The patient is on oxygen nasal cannula. The patient is on IV antibiotics. The patient is receiving inpatient nebulizer. The patient is on IV steroids. OBJECTIVE: VITAL SIGNS: Temperature 98.2, pulse 86, blood pressure per nursing, respiratory rate 16, O2 sat 98% on oxygen nasal cannula. CARDIOVASCULAR: S1 and S2. RESPIRATORY: Rales. ABDOMEN: Soft. Positive bowel sounds, LABORATORY DATA: Labs on the patient is hematology per labs, hemoglobin of 12.0 , hemoglobin of 35.1, platelet count per labs, 10% lymphocytes. Chemistry: Sodium 136, potassium 4.3, chloride per labs, bicarbonate 35, anion gap 9.9. BUN 20, creatinine 0.8. GFR unavailable. Glucose is 120, calcium 9.2. Microbiology: Blood culture from 04/29/2016 shows no growth. MRSA screen from 04/29 negative. RADIOLOGY: No issues. ASSESSMENT: 1. Sepsis. 2. Pneumonia. 3. Respiratory failure (acute). 4. Chronic obstructive pulmonary disease exacerbation. 5. Hypertension. PLAN: Continue current medications. Obtain labs in the a.m. Continue weaning off oxygen. Continue weaning steroids. Further recommendations per consultations. JOB# [id number] TRACY
[2016-05-04] MEDS: Budesonide 0.5 Mg/2 mL Ud HHN SCH ×2 (06:50→19:01)
[2016-05-04] MEDS: Albuterol/Ipratropium Neb 3 ML AERS HHN SCH ×4 (06:50→19:01)
[2016-05-04 07:21] LABS: HEMATOCRIT 33.8 % (39.0-49.0); HEMOGLOBIN 11.6 gm/dL (12.6-17.4); MEAN CELL VOLUME 97.4 fl (80-99); MEAN CORPUSCULAR HEMOGLOBIN 33.2 pg (27.0-31.0); MEAN CORPUSCULAR HGB CONC 34.1 pg (28.0-36.0); MEAN PLATELET VOLUME 7.8 fl; PLATELET COUNT 161 Th/cmm (150-400); RED BLOOD COUNT 3.48 Mil/cmm (3.80-5.80); RED CELL DISTRIBUTION WIDTH 12.9 % (11.5-20.0); WHITE BLOOD COUNT 8.2 Th/cmm (4.8-10.8)
[2016-05-04 08:34] LABS: BUN - UREA NITROGEN 19 mg/dL (7-25); BUN/CREATININE RATIO 23.8; CALCIUM SERUM 8.8 mg/dL (8.6-10.3); CHLORIDE 103 mEq/L (98-107); CREATININE - SERUM 0.8 mg/dL (0.7-1.3); GLUCOSE 91 mg/dL (70-105); POTASSIUM SERUM 3.9 mEq/L (3.5-5.1); SODIUM SERUM 136 mEq/L (136-145)
[2016-05-04] MEDS: Pantoprazole 40 mg/Packet PO SCH (08:38)
[2016-05-04] MEDS: Levofloxacin 500mg/100mL 500 MG/100 ML BAG IV SCH (08:42)
[2016-05-04 09:05] LABS: pH 7.44 (7.35-7.45)
[2016-05-04 09:06] LABS: ABG SOURCE Arterial; ALLEN TEST YES; BE(B) 11.3 mEq/L (-3.0-3.0); FIO2 21; HCO3 37.4 mEq/L (20.0-26.0)
[2016-05-04 09:07] LABS: CRITICAL VALUES REPORTED BY SH
[2016-05-04 09:30] LABS: ANION GAP 1.1 (7.0-16.0); CARBON DIOXIDE 35.8 mEq/L (21.0-31.0)
[2016-05-04 10:07] LABS: NEUTROPHILS 80 % (40-80); TOTAL CELLS COUNTED 100
[2016-05-04 10:08] LABS: MYELOCYTE 3 %; PLATELET ESTIMATE ADEQUATE (NORMAL); PLATELET MORPHOLOGY NORMAL (NORMAL)
[2016-05-04] MEDS: D5-0.9%NS 1,000 ML IV SCH (10:22)
--- NOTE | 2016-05-04 14:42 | Diagnostic Imaging Report ---
Chest x-ray (2 views) HISTORY: Shortness of breath, pneumonia Compared with the prior exam of 04/29/2016, no change in severe bilateral predominantly lower lobe chronic interstitial lung disease. Pleural calcification noted in the left upper hemithorax. No definite acute focal processes are seen. IMPRESSION: 1. No significant change from April 29, 2016 with severe bilateral predominantly lower lobe chronic interstitial lung changes and pleural calcification. No definite acute abnormalities.
--- NOTE | 2016-05-04 18:00 | Infectious Disease Prog Note ---
Infectious Disease Subjective - Review of Systems Service Date: 05/04/16 Subjective: cc pneumonia/copd hpio- pt blood cx negative wbc normal ros no frveer o/e vss chest claera bd soft ext no edema dx pneumonia bronchitis copd Infectious Disease Objective - Results Result Diagrams: 05/04/16 06:05 05/04/16 07:50 Recent Labs: Laboratory Last Values WBC 8.2 Th/cmm (4.8-10.8) 05/04/16 06:05 RBC 3.48 Mil/cmm (3.80-5.80) L 05/04/16 06:05 Hgb 11.6 gm/dL (12.6-17.4) L 05/04/16 06:05 Hct 33.8 % (39.0-49.0) L 05/04/16 06:05 MCV 97.4 fl (80-99) 05/04/16 06:05 MCH 33.2 pg (27.0-31.0) H 05/04/16 06:05 MCHC Differential 34.1 pg (28.0-36.0) 05/04/16 06:05 RDW 12.9 % (11.5-20.0) 05/04/16 06:05 Plt Count 161 Th/cmm (150-400) 05/04/16 06:05 MPV 7.8 fl 05/04/16 06:05 Band Neutrophils % 4 % (0-10) 05/03/16 06:27 Neutrophils (Manual) 80 % (40-80) 05/04/16 06:05 Lymphocytes 7 % (20-50) L 05/04/16 06:05 Monocytes 10 % (2-10) 05/04/16 06:05 Myelocytes 3 % 05/04/16 06:05 Platelet Estimate ADEQUATE (NORMAL) 05/04/16 06:05 Platelet Morphology NORMAL (NORMAL) 05/04/16 06:05 RBC Morph Micro Appear NORMAL (NORMAL) 05/04/16 06:05 ESR 9 mm/hr (0-20) 05/04/16 06:05 Specimen Source Arterial 05/04/16 09:00 Sample Site Right Radial 05/04/16 09:00 pH 7.44 (7.35-7.45) 05/04/16 09:00 pCO2 55.0 mmHg (35.0-45.0) H 05/04/16 09:00 pO2 41.0 mmHg (80.0-100.0) L* 05/04/16 09:00 HCO3 37.4 mEq/L (20.0-26.0) H 05/04/16 09:00 Base Excess 11.3 mEq/L (-3.0-3.0) H 05/04/16 09:00 O2 Saturation 78.0 % (92.0-100.0) L 05/04/16 09:00 Chilo Test YES 05/04/16 09:00 Vent Rate NA 05/04/16 09:00 Inspired O2 21 05/04/16 09:00 Tidal Volume NA 05/04/16 09:00 PEEP NA 05/04/16 09:00 Pressure (ins/psv/peep) NA 05/04/16 09:00 Critical Value SH 05/04/16 09:00 Sodium 136 mEq/L (136-145) 05/04/16 07:50 Potassium 3.9 mEq/L (3.5-5.1) 05/04/16 07:50 Chloride 103 mEq/L (98-107) 05/04/16 07:50 Carbon Dioxide 35.8 mEq/L (21.0-31.0) H 05/04/16 07:50 Anion Gap 1.1 (7.0-16.0) L 05/04/16 07:50 BUN 19 mg/dL (7-25) 05/04/16 07:50 Creatinine 0.8 mg/dL (0.7-1.3) 05/04/16 07:50 Est GFR ( Amer) TNP 05/04/16 07:50 Est GFR (Non-Af Amer) TNP 05/04/16 07:50 BUN/Creatinine Ratio 23.8 05/04/16 07:50 Glucose 91 mg/dL (70-105) 05/04/16 07:50 POC Glucose 167 MG/DL (70 - 105) H 04/29/16 11:59 Whole Bld Lactic Acid 1.82 mmol/L (0.60-1.99) 04/29/16 08:40 Calcium 8.8 mg/dL (8.6-10.3) 05/04/16 07:50 Total Bilirubin 0.3 mg/dL (0.3-1.0) 05/01/16 06:30 Direct Bilirubin 0.10 mg/dL (0.0-0.2) 05/01/16 06:30 AST 13 U/L (13-39) 05/01/16 06:30 ALT 11 U/L (7-52) 05/01/16 06:30 Alkaline Phosphatase 34 U/L (34-104) 05/01/16 06:30 Ammonia 34 umol/L (16-53) 05/01/16 06:30 Creatine Kinase 45 U/L (30-223) 04/30/16 05:55 Troponin I 0.01 ng/mL (0.01-0.05) 04/30/16 05:55 C-Reactive Protein < 0.2 mg/dL (0.0-0.9) 05/04/16 06:05 Total Protein 6.2 gm/dL (6.0-8.3) 05/01/16 06:30 Albumin 3.3 gm/dL (4.2-5.5) L 05/01/16 06:30 Globulin 2.9 gm/dL 05/01/16 06:30 Albumin/Globulin Ratio 1.1 (1.0-1.8) 05/01/16 06:30 Triglycerides 46 mg/dL (<150) 04/30/16 05:55 Cholesterol 140 mg/dL (<200) 04/30/16 05:55 LDL Cholesterol Direct 64 mg/dL (75-193) L 04/30/16 05:55 HDL Cholesterol 61 mg/dL (23-92) 04/30/16 05:55 - Physical Exam Vitals and I&O: Vital Signs Temp 98.6 F 05/04/16 16:16 Pulse 140 05/04/16 16:16 Resp 17 05/04/16 16:16 BP 130/85 05/04/16 16:16 Pulse Ox 97 05/04/16 16:16 Intake & Output 05/03/16 05/04/16 05/04/16 18:59 06:59 18:59 Intake Total 762 417 7934 Output Total 400 Balance 659 161 2020 Intake: Intake, IV Amount 317 741 3365 D5-0.9%Ns 1,000 ml @ 100 1000 mls/hr IV .Q10H [facility] Rx#: [id number] Levofloxacin 500mg/100mL 100 500 mg In 100 ml @ 100 mls/hr IV Q24HR [facility] Rx#: [id number] Piperacillin Sodium/ 100 100 50 Tazobact 3.375 gm In Sodium Chloride 0.9% 50 ml @ 100 mls/hr IV Q6HR [facility] Rx#:[id number] Oral 450 300 Output: Urine 400 Other: # Voids 3 Stool Characteristics Soft Soft Soft Active Medications: Current Medications Acetaminophen (Tylenol) 650 mg PO Q6H PRN PRN Reason: Mild Pain/Headache/T above 101 Stop: 06/28/16 10:50 Acetaminophen/Hydrocodone Bitart ([place] 10 Mg/325 Mg) 1 tab PO Q6H PRN PRN Reason: Pain (Severe) Stop: 06/28/16 10:50 Acetaminophen/Hydrocodone Bitart ([place] 5mg/325mg) 1 tab PO Q6H PRN PRN Reason: Moderate Pain Stop: 06/28/16 10:50 Al Hydrox/Mg Hydrox/Simethicone (Maalox) 30 ml PO Q6H PRN PRN Reason: GI DISTRESS Stop: 06/28/16 10:50 Albuterol Sulfate (Albuterol 2.5mg/3ml Neb Ud) 2.5 mg HHN Q6H PRN PRN Reason: Shortness of Breath Stop: 06/28/16 10:50 Last Admin: 05/02/16 05:44 Dose: 2.5 mg Albuterol/Ipratropium (Duoneb Neb) 3 ml HHN [id number] [facility] Stop: 06/29/16 14:59 Last Admin: 05/04/16 15:06 Dose: 3 ml Amlodipine Besylate (Norvasc) 5 mg PO DAILY [facility] Stop: 06/29/16 08:59 Last Admin: 05/04/16 08:39 Dose: 5 mg Budesonide (Pulmicort) 0.5 mg HHN BIDRT [facility] Stop: 06/29/16 18:59 Last Admin: 05/04/16 06:50 Dose: 0.5 mg Dextrose/Sodium Chloride (D5-0.9%Ns) 1,000 mls @ 100 mls/hr IV .Q10H [facility] Stop: 06/28/16 10:59 Last Admin: 05/04/16 10:22 Dose: 100 mls/hr Levofloxacin (Levaquin Pb) 500 mg in 100 mls @ 100 mls/hr IV Q24HR [facility] Stop: 06/29/16 08:59 Last Admin: 05/04/16 08:42 Dose: 100 mls/hr Piperacillin Sod/Tazobactam (Sod 3.375 gm/ Sodium Chloride) 50 mls @ 100 mls/ hr IV Q6HR [facility] Stop: 06/28/16 17:59 Last Admin: 05/04/16 17:34 Dose: 100 mls/hr Ipratropium [place] (Atrovent Neb 0.5mg/2.5ml) 0.5 mg HHN Q6H PRN PRN Reason: Shortness of Breath Stop: 06/28/16 10:50 Last Admin: 05/02/16 05:44 Dose: 0.5 mg Lorazepam (Ativan) 1 mg PO Q6H PRN; Protocol PRN Reason: Anxiety/Agitation Stop: 06/28/16 10:50 Last Admin: 05/04/16 17:34 Dose: 1 mg Losartan Potassium (Cozaar) 100 mg PO DAILY [facility] Stop: 06/29/16 08:59 Last Admin: 05/04/16 08:38 Dose: 100 mg Magnesium Hydroxide (Milk Of Magnesia) 30 ml PO HS PRN PRN Reason: Constipation Stop: 06/28/16 10:50 Miscellaneous (Zosyn Iv Per Pharmacy) 1 ea MC PRN PRN PRN Reason: PROTOCOL Stop: 06/28/16 12:55 Ondansetron HCl (Zofran Odt) 4 mg PO Q6H PRN PRN Reason: Nausea / Vomiting Stop: 06/28/16 10:50 Pantoprazole Sodium (Protonix) 40 mg PO DAILY [facility] Stop: 06/29/16 14:29 Last Admin: 05/04/16 08:38 Dose: 40 mg Prednisone (Deltasone) 20 mg PO BID [facility] Stop: 07/02/16 16:59 Last Admin: 05/04/16 17:33 Dose: 20 mg Promethazine HCl/Dextromethorphan (Phenergan Dm 6.25/15mg-5 Ml) 5 ml PO Q6HR PRN PRN Reason: Cough Stop: 06/28/16 12:27 Last Admin: 05/03/16 08:54 Dose: 5 ml - Procedures Procedures: Procedures Procedure Code Date CATARAC PHACOEMULS/ASPIR 13.41 10/11/03 CATARACT SURG W/IOL 1 STAGE 35484 10/11/03 DRAINAGE OF FINGER ABSCESS 90890 11/23/13 INSERT LENS AT CATAR EXT 13.71 10/11/03 IRRIGATION OF EAR 96.52 04/18/14 OTHER SKIN & SUBQ I D 86.04 11/25/13 Infectious Disease Assmt/Plan - Problem List Patient Problems: All Active Problems ANKLE PAIN (Active 11/24/12) Arthritis (Active) M19.90 COUGH WITH CONGESTION (Acute) Cellulitis (Acute) L03.90 Cerumen impaction (Acute) H61.20 Paronychia (Acute) L03.019 Respiratory tract congestion with cough (Acute) R05 Nutritional Asmnt/Malnutr-PDOC - Dietary Evaluation Malnutrition Findings (Please click <Entered> for more info): Nutritional Asmnt/Malnutrition Start: 04/30/16 15: 18 Text: Status: Complete Freq: Document 04/30/16 15:18 GSUN (Rec: 04/30/16 15:27 GSUN [place] [id number]) Nutritional Asmnt/Malnutrition Patient General Information Nutritional Screening High Risk Screening Diagnosis Respiratory failure, COPD exacerbation Pertinent Medical Hx/Surgical Hx COPD 7 years, HTN Subjective Information 80 year old male. Visited pt during meal time. Pt was sitting upright, pleasant and cooperative, finished 100% of meals, meeting nutritional needs. Pt noted with coughs, pt stated cough is chronic and denied inteference with eating. Pt with few missing teeth, denied difficulties chewing/swallowng. Pt stated good appetite, breakfast was " awesome." CBW 143.8lb. Moderate fat/muscle wasting to chest, temporals, extremities . Current Diet Order/ Nutrition Support Cardiac Pertinent Medications D5, MOM, Solu-Medrol, Zofran, Protonix Pertinent Labs Reviewed. Nutritional Hx/Data Height 15.24 cm Height (Calculated Centimeters) 15.2 Current Weight (lbs) 65.227 kg Weight (Calculated Kilograms) 65.2 Weight (Calculated Grams) 56551.6 [place] Body Weight 178lb Weight Status Underweight GI Symptoms Food Allergies No Skin Integrity/Comment: Adam 20. Skin intact. Estimated Nutritional Goals Calories/Kcals/Kg IBW 178lb/81kg (underweight, chronic COPD using IBW) Kcals Calculated 2025-243kcal (25-30kcal/kg) Protein g/kg: IBW Protein Calculated 81-97g (1-1.2g/kg) Fluid: ml 2024-243ml (1ml/kcal) Nutritional Problem 1. Problem Problem Underweight related to Etiology unknown etiology aeb Signs/Symptoms: BMI <18.5, moderate fat/muscle depletion Intervention/Recommendation Comments 1. Continue with cardiac diet. Current av PO intake si adequate. 2. Monitor weight. Pt is underweight for age with moderate muscle/fat depletion. Expected Outcomes/Goals Expected Outcomes/Goals 1. Po itnake to meet at least 100% of estimated nutrition needs. 2. Weight trend towards IBW.
--- NOTE | 2016-05-05 05:44 | Progress Notes ---
SUBJECTIVE: The patient is awake and alert. The patient is on oxygen via nasal cannula. The patient is on IV antibiotics. The patient is on IV fluids. The patient is receiving inpatient neb treatment. OBJECTIVE: VITAL SIGNS: Temperature 98.6, pulse 140, blood pressure 130/85, respiratory rate 17, and O2 sat 97% on 2 liters nasal cannula. CARDIOVASCULAR: S1 and S2. RESPIRATORY: Rales. GASTROINTESTINAL: Soft. Positive bowel sounds. LABORATORY DATA: Hematology: WBC 8.2, hemoglobin 11.6, hematocrit 33.8, platelet count of 161, 7% lymphocytes. ABG shows pCO2 of 55, pO2 of 41, bicarb 37. Chemistry: Sodium 136, potassium 2.9, chloride 103, bicarb 35, BUN 19, creatinine 0.8, GFR unavailable, glucose 91, calcium is 8.8. C-reactive protein is less than 0.2. MICROBIOLOGY: Blood cultures from 04/29/2016 shows no growth. MRSA screen from 04/29/2016 is negative. RADIOLOGY: Chest x-ray on 05/04/2016 shows severe bilateral lower lobe interstitial lung changes and pleural calcification, no definite acute abnormalities. ASSESSMENT: 1. Sepsis. 2. Pneumonia. 3. Respiratory failure (acute). 4. Chronic obstructive pulmonary disease exacerbation. 5. Hypertension. 6. Anemia. PLAN: Continue current medication and treatment. Obtain labs in the a.m. The patient is off IV steroids. Further recommendations per consultation. JOB# [id number] TRACY
[2016-05-05 06:15] LABS: BUN - UREA NITROGEN 20 mg/dL (7-25); BUN/CREATININE RATIO 28.6; CHLORIDE 97 mEq/L (98-107); CREATININE - SERUM 0.7 mg/dL (0.7-1.3); GLUCOSE 96 mg/dL (70-105); POTASSIUM SERUM 4.7 mEq/L (3.5-5.1); SODIUM SERUM 135 mEq/L (136-145)
[2016-05-05 06:36] LABS: ANION GAP 1.8 (7.0-16.0); CARBON DIOXIDE 40.9 mEq/L (21.0-31.0)
[2016-05-05 07:15] LABS: HEMATOCRIT 33.2 % (39.0-49.0); HEMOGLOBIN 11.6 gm/dL (12.6-17.4); MEAN CELL VOLUME 96.5 fl (80-99); MEAN CORPUSCULAR HEMOGLOBIN 33.6 pg (27.0-31.0); MEAN CORPUSCULAR HGB CONC 34.8 pg (28.0-36.0); MEAN PLATELET VOLUME 8.4 fl; PLATELET COUNT 161 Th/cmm (150-400); RED BLOOD COUNT 3.44 Mil/cmm (3.80-5.80); RED CELL DISTRIBUTION WIDTH 13.1 % (11.5-20.0); WHITE BLOOD COUNT 7.7 Th/cmm (4.8-10.8)
[2016-05-05] MEDS: Budesonide 0.5 Mg/2 mL Ud HHN SCH ×2 (07:53→19:45)
[2016-05-05] MEDS: Albuterol/Ipratropium Neb 3 ML AERS HHN SCH ×4 (07:53→19:45)
[2016-05-05] MEDS: Levofloxacin 500mg/100mL 500 MG/100 ML BAG IV SCH (08:58)
[2016-05-05] MEDS: Pantoprazole 40 mg/Packet PO SCH (08:58)
--- NOTE | 2016-05-05 09:20 | Diagnostic Imaging Report ---
Chest x-ray (2 views) HISTORY, shortness of breath Compared with the prior study of 05/04/2016, no change in bilateral lower lobe chronic interstitial infiltrates along with pleural calcification. IMPRESSION: 1. No change in the pulmonary status.
[2016-05-05] MEDS ORDERED: Diltiazem 5 mg/mL 5mL Vial IVP STA (09:43)
[2016-05-05 10:03] LABS: BAND NEUTROPHILE 4 % (0-10); NEUTROPHILS 79 % (40-80); TOTAL CELLS COUNTED 100
[2016-05-05 10:04] LABS: PLATELET ESTIMATE ADEQUATE (NORMAL); PLATELET MORPHOLOGY NORMAL (NORMAL)
[2016-05-05] MEDS: Diltiazem 30 mg Tab PO SCH ×2 (12:20→23:45)
[2016-05-05] MEDS: D5-0.9%NS 1,000 ML IV SCH (16:25)
--- NOTE | 2016-05-06 00:01 | Progress Notes ---
PULMONARY PROGRESS NOTE PROBLEM LIST: 1. Acute exacerbation of chronic obstructive pulmonary disease. 2. Pulmonary fibrosis. 3. Acute on chronic respiratory failure. SYMPTOMS: Nil. Very minimal sputum. No specific new symptoms. He is walking around with the help of O2. No specific new symptoms. PHYSICAL EXAMINATION: VITAL SIGNS: The patient is afebrile, respirations 18, and saturation 98% on 2 liters. ENT: No new changes. CHEST: Shows occasional rhonchi with diminished air entry. HEART: Regular. ABDOMEN: Soft and nontender. LABORATORY DATA: The patient's white count is 7.7, hemoglobin 11.6 and electrolytes are okay with creatinine of 0.7 and also anion gap of 1.8. ASSESSMENT: The patient is clinically significantly improved. PLANS AND SUGGESTIONS: Okay pulmonary casarez to be discharged. Would require a chronic oxygen therapy, bronchodilator, tapering dose of steroids, empirical oral antibiotic, and we will be glad to follow up as an outpatient and go from there. [facility]# [id number]
[2016-05-06] MEDS: D5-0.9%NS 1,000 ML IV SCH (03:37)
[2016-05-06] MEDS: Promethazine DM 6.25/15mg-5mL 5 ML SYR PO PRN (05:32)
[2016-05-06] MEDS: Diltiazem 30 mg Tab PO SCH ×3 (06:02→15:36)
[2016-05-06 07:16] LABS: % EOSINOPHILS 0.2 % (0.0-5.0); % LYMPHOCYTES 4.4 % (20.0-50.0); % MONOCYTES 11.2 % (2.0-10.0); % NEUTROPHILS 84.2 % (40.0-80.0); HEMATOCRIT 32.8 % (39.0-49.0); HEMOGLOBIN 11.2 gm/dL (12.6-17.4); MEAN CELL VOLUME 97.7 fl (80-99); MEAN CORPUSCULAR HEMOGLOBIN 33.3 pg (27.0-31.0); MEAN CORPUSCULAR HGB CONC 34.1 pg (28.0-36.0); MEAN PLATELET VOLUME 7.9 fl; NEUTROPHILE ABSOLUTE 7.1 Th/cmm (1.8-8.0); PLATELET COUNT 170 Th/cmm (150-400); RED BLOOD COUNT 3.35 Mil/cmm (3.80-5.80); RED CELL DISTRIBUTION WIDTH 13.2 % (11.5-20.0); WHITE BLOOD COUNT 8.5 Th/cmm (4.8-10.8)
[2016-05-06] MEDS: Albuterol/Ipratropium Neb 3 ML AERS HHN SCH ×3 (07:41→17:09)
[2016-05-06] MEDS: Budesonide 0.5 Mg/2 mL Ud HHN SCH (07:41)
[2016-05-06 08:22] LABS: BUN - UREA NITROGEN 19 mg/dL (7-25); BUN/CREATININE RATIO 23.8; CALCIUM SERUM 9.1 mg/dL (8.6-10.3); CHLORIDE 96 mEq/L (98-107); CREATININE - SERUM 0.8 mg/dL (0.7-1.3); GLUCOSE 121 mg/dL (70-105); POTASSIUM SERUM 4.6 mEq/L (3.5-5.1); SODIUM SERUM 136 mEq/L (136-145)
[2016-05-06 08:45] LABS: ANION GAP 2.8 (7.0-16.0)
[2016-05-06 08:48] LABS: CARBON DIOXIDE 41.8 mEq/L (21.0-31.0)
--- NOTE | 2016-05-06 09:17 | Progress Notes ---
SUBJECTIVE: The patient is awake and alert. The patient is on oxygen nasal cannula. The patient is on IV antibiotics. The patient is receiving inpatient neb treatment. The patient is on IV fluids. The patient is on steroids. Per Cardiology, the patient is found to have atrial fibrillation with rapid ventricular response. PHYSICAL EXAMINATION: VITAL SIGNS: Temperature 98.1, pulse 101, blood pressure 131/69, respiratory rate 18, and O2 sat is 95% On 2 liter nasal cannula. CARDIOVASCULAR: Irregularly irregular rhythm. RESPIRATORY: Rales. GASTROINTESTINAL: Soft and nontender. Positive bowel sounds. LABORATORY DATA: Hematology: WBC 7.7, hemoglobin 11.6, hematocrit 33.2, platelet count 161,000, and 9% lymphocytes. Chemistry: Sodium 135, potassium 4.7, chloride 97, bicarb 40, anion gap 1.8, BUN 20, and creatinine 0.7. GFR unavailable. Glucose 96 and calcium 9.0. MICROBIOLOGY: Blood culture from April 29 is negative. MRSA screen from April 29 is negative. Sputum culture from May 04 shows contamination. ASSESSMENT: 1. Anemia. 2. Hyponatremia. 3. Atrial fibrillation with rapid ventricular response. 4. Sepsis. 5. Pneumonia. 6. Respiratory failure (acute). 7. Chronic obstructive pulmonary disease exacerbation. 8. Hypertension. PLAN: Continue current medication and treatment. Obtain labs in a.m. We will renew IV antibiotics. The patient has been started on Cardizem and Eliquis by Cardiology. Further recommendations per consultation. [facility]# [id number]
[2016-05-06] MEDS: Pantoprazole 40 mg/Packet PO SCH (09:52)
[2016-05-06] MEDS: Levofloxacin 500mg/100mL 500 MG/100 ML BAG IV SCH (09:58)
--- NOTE | 2016-05-06 14:03 | Infectious Disease Prog Note ---
Infectious Disease Subjective - Review of Systems Service Date: 05/06/16 Subjective: cc pneumonia/copd hpio- pt blood cx negative wbc normal zosyn renewed ros no frveer o/e vss chest claera bd soft ext no edema dx pneumonia bronchitis copd Infectious Disease Objective - Results Result Diagrams: 05/06/16 05:25 05/06/16 05:25 Recent Labs: Laboratory Last Values WBC 8.5 Th/cmm (4.8-10.8) 05/06/16 05:25 RBC 3.35 Mil/cmm (3.80-5.80) L 05/06/16 05:25 Hgb 11.2 gm/dL (12.6-17.4) L 05/06/16 05:25 Hct 32.8 % (39.0-49.0) L 05/06/16 05:25 MCV 97.7 fl (80-99) 05/06/16 05:25 MCH 33.3 pg (27.0-31.0) H 05/06/16 05:25 MCHC Differential 34.1 pg (28.0-36.0) 05/06/16 05:25 RDW 13.2 % (11.5-20.0) 05/06/16 05:25 Plt Count 170 Th/cmm (150-400) 05/06/16 05:25 MPV 7.9 fl 05/06/16 05:25 Neutrophils % 84.2 % (40.0-80.0) H 05/06/16 05:25 Band Neutrophils % 4 % (0-10) 05/05/16 05:15 Lymphocytes % 4.4 % (20.0-50.0) L 05/06/16 05:25 Monocytes % 11.2 % (2.0-10.0) H 05/06/16 05:25 Eosinophils % 0.2 % (0.0-5.0) 05/06/16 05:25 Basophils % 0.0 % (0.0-2.0) 05/06/16 05:25 Neutrophils (Manual) 79 % (40-80) 05/05/16 05:15 Lymphocytes 9 % (20-50) L 05/05/16 05:15 Monocytes 8 % (2-10) 05/05/16 05:15 Myelocytes 3 % 05/04/16 06:05 Platelet Estimate ADEQUATE (NORMAL) 05/05/16 05:15 Platelet Morphology NORMAL (NORMAL) 05/05/16 05:15 RBC Morph Micro Appear NORMAL (NORMAL) 05/05/16 05:15 ESR 9 mm/hr (0-20) 05/04/16 06:05 Specimen Source Arterial 05/04/16 09:00 Sample Site Right Radial 05/04/16 09:00 pH 7.44 (7.35-7.45) 05/04/16 09:00 pCO2 55.0 mmHg (35.0-45.0) H 05/04/16 09:00 pO2 41.0 mmHg (80.0-100.0) L* 05/04/16 09:00 HCO3 37.4 mEq/L (20.0-26.0) H 05/04/16 09:00 Base Excess 11.3 mEq/L (-3.0-3.0) H 05/04/16 09:00 O2 Saturation 78.0 % (92.0-100.0) L 05/04/16 09:00 Chilo Test YES 05/04/16 09:00 Vent Rate NA 05/04/16 09:00 Inspired O2 21 05/04/16 09:00 Tidal Volume NA 05/04/16 09:00 PEEP NA 05/04/16 09:00 Pressure (ins/psv/peep) NA 05/04/16 09:00 Critical Value SH 05/04/16 09:00 Sodium 136 mEq/L (136-145) 05/06/16 05:25 Potassium 4.6 mEq/L (3.5-5.1) 05/06/16 05:25 Chloride 96 mEq/L (98-107) L 05/06/16 05:25 Carbon Dioxide 41.8 mEq/L (21.0-31.0) H 05/06/16 05:25 Anion Gap 2.8 (7.0-16.0) L 05/06/16 05:25 BUN 19 mg/dL (7-25) 05/06/16 05:25 Creatinine 0.8 mg/dL (0.7-1.3) 05/06/16 05:25 Est GFR ( Amer) TNP 05/06/16 05:25 Est GFR (Non-Af Amer) TNP 05/06/16 05:25 BUN/Creatinine Ratio 23.8 05/06/16 05:25 Glucose 121 mg/dL (70-105) H 05/06/16 05:25 POC Glucose 167 MG/DL (70 - 105) H 04/29/16 11:59 Whole Bld Lactic Acid 1.82 mmol/L (0.60-1.99) 04/29/16 08:40 Calcium 9.1 mg/dL (8.6-10.3) 05/06/16 05:25 Total Bilirubin 0.3 mg/dL (0.3-1.0) 05/01/16 06:30 Direct Bilirubin 0.10 mg/dL (0.0-0.2) 05/01/16 06:30 AST 13 U/L (13-39) 05/01/16 06:30 ALT 11 U/L (7-52) 05/01/16 06:30 Alkaline Phosphatase 34 U/L (34-104) 05/01/16 06:30 Ammonia 34 umol/L (16-53) 05/01/16 06:30 Creatine Kinase 45 U/L (30-223) 04/30/16 05:55 Troponin I 0.01 ng/mL (0.01-0.05) 04/30/16 05:55 C-Reactive Protein < 0.2 mg/dL (0.0-0.9) 05/04/16 06:05 Total Protein 6.2 gm/dL (6.0-8.3) 05/01/16 06:30 Albumin 3.3 gm/dL (4.2-5.5) L 05/01/16 06:30 Globulin 2.9 gm/dL 05/01/16 06:30 Albumin/Globulin Ratio 1.1 (1.0-1.8) 05/01/16 06:30 Triglycerides 46 mg/dL (<150) 04/30/16 05:55 Cholesterol 140 mg/dL (<200) 04/30/16 05:55 LDL Cholesterol Direct 64 mg/dL (75-193) L 04/30/16 05:55 HDL Cholesterol 61 mg/dL (23-92) 04/30/16 05:55 - Physical Exam Vitals and I&O: Vital Signs Temp 98.3 F 05/06/16 12:00 Pulse 72 05/06/16 12:40 Resp 18 05/06/16 12:40 BP 127/72 05/06/16 12:00 Pulse Ox 97 05/06/16 12:40 Intake & Output 05/05/16 05/06/16 05/06/16 18:59 06:59 18:59 Intake Total 150 1000 Balance 150 1000 Intake: Intake, IV Amount 150 1000 D5-0.9%Ns 1,000 ml @ 100 1000 mls/hr IV .Q10H [facility] Rx#: [id number] Levofloxacin 500mg/100mL 100 500 mg In 100 ml @ 100 mls/hr IV Q24HR [facility] Rx#: [id number] Piperacillin Sodium/ 50 Tazobact 3.375 gm In Sodium Chloride 0.9% 50 ml @ 100 mls/hr IV Q6HR [facility] Rx#:[id number] Active Medications: Current Medications Acetaminophen (Tylenol) 650 mg PO Q6H PRN PRN Reason: Mild Pain/Headache/T above 101 Stop: 06/28/16 10:50 Acetaminophen/Hydrocodone Bitart ([place] 10 Mg/325 Mg) 1 tab PO Q6H PRN PRN Reason: Pain (Severe) Stop: 06/28/16 10:50 Acetaminophen/Hydrocodone Bitart ([place] 5mg/325mg) 1 tab PO Q6H PRN PRN Reason: Moderate Pain Stop: 06/28/16 10:50 Al Hydrox/Mg Hydrox/Simethicone (Maalox) 30 ml PO Q6H PRN PRN Reason: GI DISTRESS Stop: 06/28/16 10:50 Albuterol Sulfate (Albuterol 2.5mg/3ml Neb Ud) 2.5 mg HHN Q6H PRN PRN Reason: Shortness of Breath Stop: 06/28/16 10:50 Last Admin: 05/02/16 05:44 Dose: 2.5 mg Albuterol/Ipratropium (Duoneb Neb) 3 ml HHN [id number] [facility] Stop: 06/29/16 14:59 Last Admin: 05/06/16 12:39 Dose: 3 ml Amlodipine Besylate (Norvasc) 5 mg PO DAILY [facility] Stop: 06/29/16 08:59 Last Admin: 05/06/16 09:52 Dose: 5 mg Budesonide (Pulmicort) 0.5 mg HHN BIDRT [facility] Stop: 06/29/16 18:59 Last Admin: 05/06/16 07:41 Dose: 0.5 mg Diltiazem HCl (Cardizem) 30 mg PO Q6HR [facility] Stop: 07/04/16 11:59 Last Admin: 05/06/16 06:02 Dose: Not Given Dextrose/Sodium Chloride (D5-0.9%Ns) 1,000 mls @ 100 mls/hr IV .Q10H [facility] Stop: 06/28/16 10:59 Last Admin: 05/06/16 03:37 Dose: 100 mls/hr Levofloxacin (Levaquin Pb) 500 mg in 100 mls @ 100 mls/hr IV Q24HR [facility] Stop: 06/29/16 08:59 Last Admin: 05/06/16 09:58 Dose: 100 mls/hr Piperacillin Sod/Tazobactam (Sod 3.375 gm/ Sodium Chloride) 50 mls @ 100 mls/ hr IV Q6HR [facility] Stop: 06/28/16 17:59 Last Infusion: 05/05/16 13:30 Dose: Infused Ipratropium [place] (Atrovent Neb 0.5mg/2.5ml) 0.5 mg HHN Q6H PRN PRN Reason: Shortness of Breath Stop: 06/28/16 10:50 Last Admin: 05/02/16 05:44 Dose: 0.5 mg Lorazepam (Ativan) 1 mg PO Q6H PRN; Protocol PRN Reason: Anxiety/Agitation Stop: 06/28/16 10:50 Last Admin: 05/04/16 17:34 Dose: 1 mg Losartan Potassium (Cozaar) 100 mg PO DAILY [facility] Stop: 06/29/16 08:59 Last Admin: 05/06/16 09:51 Dose: 100 mg Magnesium Hydroxide (Milk Of Magnesia) 30 ml PO HS PRN PRN Reason: Constipation Stop: 06/28/16 10:50 Miscellaneous (Zosyn Iv Per Pharmacy) 1 ea MC PRN PRN PRN Reason: PROTOCOL Stop: 06/28/16 12:55 Ondansetron HCl (Zofran Odt) 4 mg PO Q6H PRN PRN Reason: Nausea / Vomiting Stop: 06/28/16 10:50 Pantoprazole Sodium (Protonix) 40 mg PO DAILY [facility] Stop: 06/29/16 14:29 Last Admin: 05/06/16 09:52 Dose: 40 mg Prednisone (Deltasone) 20 mg PO BID [facility] Stop: 07/02/16 16:59 Last Admin: 05/06/16 09:52 Dose: 20 mg Promethazine HCl/Dextromethorphan (Phenergan Dm 6.25/15mg-5 Ml) 5 ml PO Q6HR PRN PRN Reason: Cough Stop: 06/28/16 12:27 Last Admin: 05/06/16 05:32 Dose: 5 ml Rivaroxaban (Xarelto) 10 mg PO DAILY [facility] Stop: 07/04/16 10:59 Last Admin: 05/06/16 09:51 Dose: 10 mg - Procedures Procedures: Procedures Procedure Code Date CATARAC PHACOEMULS/ASPIR 13.41 10/11/03 CATARACT SURG W/IOL 1 STAGE 83630 10/11/03 DRAINAGE OF FINGER ABSCESS 38803 11/23/13 INSERT LENS AT CATAR EXT 13.71 10/11/03 IRRIGATION OF EAR 96.52 04/18/14 OTHER SKIN & SUBQ I D 86.04 11/25/13 Infectious Disease Assmt/Plan - Problem List Patient Problems: All Active Problems ANKLE PAIN (Active 11/24/12) Arthritis (Active) M19.90 COUGH WITH CONGESTION (Acute) Cellulitis (Acute) L03.90 Cerumen impaction (Acute) H61.20 Paronychia (Acute) L03.019 Respiratory tract congestion with cough (Acute) R05 Nutritional Asmnt/Malnutr-PDOC - Dietary Evaluation Malnutrition Findings (Please click <Entered> for more info): Nutritional Asmnt/Malnutrition Start: 04/30/16 15: 18 Text: Status: Complete Freq: Document 04/30/16 15:18 GSUN (Rec: 04/30/16 15:27 RAMON [email or web address]) Nutritional Asmnt/Malnutrition Patient General Information Nutritional Screening High Risk Screening Diagnosis Respiratory failure, COPD exacerbation Pertinent Medical Hx/Surgical Hx COPD 7 years, HTN Subjective Information 80 year old male. Visited pt during meal time. Pt was sitting upright, pleasant and cooperative, finished 100% of meals, meeting nutritional needs. Pt noted with coughs, pt stated cough is chronic and denied inteference with eating. Pt with few missing teeth, denied difficulties chewing/swallowng. Pt stated good appetite, breakfast was " awesome." CBW 143.8lb. Moderate fat/muscle wasting to chest, temporals, extremities . Current Diet Order/ Nutrition Support Cardiac Pertinent Medications D5, MOM, Solu-Medrol, Zofran, Protonix Pertinent Labs Reviewed. Nutritional Hx/Data Height 15.24 cm Height (Calculated Centimeters) 15.2 Current Weight (lbs) 65.227 kg Weight (Calculated Kilograms) 65.2 Weight (Calculated Grams) 54990.6 [place] Body Weight 178lb Weight Status Underweight GI Symptoms Food Allergies No Skin Integrity/Comment: Adam 20. Skin intact. Estimated Nutritional Goals Calories/Kcals/Kg IBW 178lb/81kg (underweight, chronic COPD using IBW) Kcals Calculated 2024-2430kcal (25-30kcal/kg) Protein g/kg: IBW Protein Calculated 81-97g (1-1.2g/kg) Fluid: ml 2024-2430ml (1ml/kcal) Nutritional Problem 1. Problem Problem Underweight related to Etiology unknown etiology aeb Signs/Symptoms: BMI <18.5, moderate fat/muscle depletion Intervention/Recommendation Comments 1. Continue with cardiac diet. Current av PO intake si adequate. 2. Monitor weight. Pt is underweight for age with moderate muscle/fat depletion. Expected Outcomes/Goals Expected Outcomes/Goals 1. Po [place] to meet at least 100% of estimated nutrition needs. 2. Weight trend towards IBW.
--- NOTE | 2016-05-06 18:28 | Discharge Summary ---
DISCHARGE DIAGNOSES: 1. Sepsis. 2. Pneumonia. 3. Chronic obstructive pulmonary disease exacerbation. 4. Hypertension. 5. Respiratory failure (acute on chronic). 6. Anemia. HOSPITAL COURSE: The patient is a 80-year-old white male who was presenting to the ER complaining of shortness of breath. The patient was admitted with diagnoses of COPD exacerbation, leukocytosis, hyponatremia, hyperglycemia, elevated troponin level, and hypertension. The patient was admitted to telemetry unit. CONSULTATIONS OBTAINED: Cardiology consultation, Dr. Fredy Marie; Infectious Disease consultation, Dr. Jami Ramirez; and pulmonary consultation, Dr. Dinesh Ramirez. The patient was placed on empiric coverage with Zosyn and Levaquin by Infectious Disease. Sutherlnad cultures were obtained. Blood cultures were negative. Sputum culture showed contamination. The patient had chest CT, which showed severely diffuse bilateral interstitial lung changes seen in the lower lobe. 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 The patient responded well to IV antibiotics. The patient on admission was placed on IV steroids. The patient responded well to IV steroids. The patient was changed to p.o. steroids. The patient developed atrial fibrillation with rapid ventricular response on 05/05/2016. The patient was placed on Cardizem and Xarelto. The patient responded well to Cardizem. The patient has been cleared by Pulmonary for discharge on nebulizers and tapering course of steroids. The patient was cleared by Infectious Disease, discharged home on Levaquin p.o. for 5 more days, and the patient had been cleared by Cardiology to be discharged home and continue home medications for hypertension along with Cardizem and Xarelto. [facility]# [id number] TRACY
--- NOTE | 2016-05-07 03:58 | Progress Notes ---
PROBLEM LIST: 1. Acute respiratory failure, improved. 2. COPD with pulmonary scarring, stable. 3. 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 SYMPTOMS: Nil, very minimal coughing, no much shortness of breath, still periodic coughing and is planning to go home today. PHYSICAL EXAMINATION: VITAL SIGNS: Temperature is 98.3, blood pressure ____, saturation is 97 on 2 liters. NECK: Veins not visualized. CHEST: Shows clear with occasional rhonchi. HEART: Regular. EXTREMITIES: Shows no peripheral edema. LABORATORY DATA: White count is 8.5 and neutrophils 82. ASSESSMENT: The patient is clinically stable, resolved [id number] respiratory failure, chronic obstructive pulmonary disease, pulmonary scarring as well as CO2 retention. PLANS AND SUGGESTIONS: Okay to go home with oxygen 2 liters per minute. We will continue on inhaled bronchodilator, and also limited dose of steroid as well as p.o. antibiotic for a few days. If desired and authorized can follow up as an outpatient. JOB# [id number]
--- NOTE | 2016-05-07 06:07 | Progress Notes ---
SUBJECTIVE: The patient is awake, alert. The patient is on oxygen nasal cannula. The patient is on IV antibiotics. The patient is receiving inpatient nebulizer. The patient is on IV fluids. Per nursing staff, the patient is back to normal sinus rhythm. PHYSICAL EXAMINATION: VITAL SIGNS: Temperature 98.6, pulse 69, blood pressure 141/83, respiratory rate 18 and O2 sat 98% on 2 liters nasal cannula. CARDIOVASCULAR: S1 and S2. RESPIRATORY: Rales. ABDOMEN: Soft. Positive bowel sounds. LABORATORY DATA: White count 8.5, hemoglobin per labs, hematocrit 32.8, platelet count of 178 with 84% neutrophils, 4% lymphocytes and 11% monocytes. Chemistry: Sodium 136, potassium per, bicarb 41, anion gap 2.8, BUN 19 and creatinine 0.8. GFR unavailable. Glucose is 121, calcium 9.1. Microbiology: Blood culture from 04/29/2016, negative. MRSA screen from 04/29/2016, negative. Sputum culture from 05/04/2016, shows contamination. ASSESSMENT: 1. Anemia. 2. Hyperglycemia. 3. Atrial fibrillation (resolved). 4. Sepsis. 5. Pneumonia. 6. Chronic obstructive pulmonary disease exacerbation. 7. Hypertension. PLAN: Continue current medications. We will obtain labs in the a.m. Further recommendations per consultation. senior benefits manager for discharge planning. We will discharge the patient when cleared by cardiology. JOB# [id number] TRACY
--- NOTE | 2016-05-21 16:41 | Progress Notes ---
DATE: 05/04/2016 PULMONARY PROGRESS NOTE PROBLEM LIST: 1. Acute on chronic respiratory failure. 2. 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 3. Suspect obstructive sleep apnea syndrome. SYMPTOMS: The patient is feeling better. Coughing and wheezing much better. No specific new symptoms. PHYSICAL EXAMINATION: VITAL SIGNS: Temperature is 98.2, blood pressure 147/82, and saturation in high 80s to low 90s on 2 liters of oxygen. NECK: Neck veins not visualized. CHEST: Shows occasional rhonchi with diminished air entry. HEART: Regular. ABDOMEN: Soft and nontender. EXTREMITIES: Shows no peripheral edema. LABORATORY DATA: The patient's CBC: White count is 8.2 and hemoglobin 11.6. ABG shows pO2 of 41. Electrolytes are okay. ASSESSMENT: The patient is clinically slowly improving. PLANS AND SUGGESTIONS: Continue current treatment. May need supplement oxygen. He has it at home. We will continue current treatment and hopefully in next 24-48 hours, we may consider discharge or ____ subacute unit if he is qualifiable insurance [employer] and go from there. JOB# [id number]
== END 2016-05-06 18:00 | disposition home or self-care (01) | DRG 871 ==
LOC: ER 08:27 → TELE 10:50
PROVIDERS: ADMIT Preventive Medicine Preventive Medicine/Occupational Environmental Medicine; ATTEND Preventive Medicine Preventive Medicine/Occupational Environmental Medicine
DX: A41.9 Sepsis, unspecified organism (principal); J18.9 Pneumonia, unspecified organism; J96.20 Acute and chronic respiratory failure, unspecified whether with hypoxia or hypercapnia; E87.1 Hypo-osmolality and hyponatremia; J44.0 Chronic obstructive pulmonary disease with (acute) lower respiratory infection; I11.9 Hypertensive heart disease without heart failure; R13.10 Dysphagia, unspecified; D64.9 Anemia, unspecified; I48.91 Unspecified atrial fibrillation; J44.1 Chronic obstructive pulmonary disease with (acute) exacerbation; R73.9 Hyperglycemia, unspecified; E78.5 Hyperlipidemia, unspecified; J45.909 Unspecified asthma, uncomplicated; I71.4 Abdominal aortic aneurysm, without rupture; Z87.891 Personal history of nicotine dependence
CPT/HCPCS: 36415-UA; 36600-90; 71010-TC; 71020-TC; 71250-TC; 80048-TC; 80053-TC; 80061-TC; 82140-TC; 82248-TC; 82550-TC; 82803-TC; 82948-90; 83605; 84484-TC; 85007-TC; 85025-TC; 85027-TC; 85652-TC; 86141-TC; 87070; 90779; 93005; 94640; 94760; J1956; J2543; J2920; J2930; J7030; J7042; J7613; X3904; Z7610